=== PATIENT | female | born 1970 | race Caucasian/White ===

== ENCOUNTER → 2023-12-19 13:27 | Outpatient (BNVA) | payer MEDICARE, MEDICAID, SELFPAY | PROVIDERS: Family Provider Pediatrics; PCP Nurse Practitioner; Visit Provider Nurse Practitioner | DX: M79.644 Pain in right finger(s) (principal) | CPT/HCPCS: 73130 ==

== ENCOUNTER 2024-01-21 18:02 | Emergency (ER) | payer MEDICARE, MEDICAID, SELFPAY ==
[2024-01-21 18:10] VITALS: BP 129/66; PULSE 76; RESP 16; O2SAT 99
--- NOTE | 2024-01-21 18:13 | USR_ITS ---
PROCEDURE INFORMATION: Exam: US Duplex Left Lower Extremity Veins, Limited Exam date and time: 01/21/2024 7:03 PM Age: 53 years old Clinical indication: Pain; Leg, lower; Left; Additional info: Leg pain TECHNIQUE: Imaging protocol: Real-time duplex ultrasound of the left extremity with 2-D encarnacion scale, color Doppler flow and spectral waveform analysis including responses to compression and other maneuvers (when performed) with image documentation. Limited exam focused on the left lower extremity veins. COMPARISON: No relevant prior studies available. FINDINGS: Left deep veins: Unremarkable. The common femoral, femoral, proximal profunda femoral, popliteal, posterior tibial and peroneal veins are patent without thrombus. Normal compressibility, augmentation response and Doppler waveforms. Superficial veins: Greater saphenous vein at the saphenofemoral junction is patent without thrombus. Soft tissues: Unremarkable. US/CV venous duplex [facility] [id number] IMPRESSION: No sonographic evidence of deep vein thrombosis.
--- NOTE | 2024-01-21 18:14 | W.ED.EXTPRO ---
HPI - Extremity Problem General: Chief complaint: Extremity Problem,Nontraumatic Stated complaint: Dr sent over for blood clot Time Seen by Provider: 01/21/24 18:09 Source: patient Mode of arrival: ambulatory Limitations: no limitations History of Present Illness: 53-year-old female states been of some left leg pain and swelling for the last 4 to 5 days states she does have history of varicose veins but is worried she has a DVT states she had 1 in the past she is on any blood thinners denies any injuries denies any severe pain. Associated symptoms: Deny chest pain, fever(s) or rash Review of Systems Const: Denies: fever(s) or chills ENMT: Denies: throat pain or dental pain Card: Denies: chest pain Resp: Denies: dyspnea GI: Denies: abdominal pain, nausea, vomiting or diarrhea Musc: Reports: extremity pain and extremity swelling; Denies: neck pain or back pain Skin/Breast: Denies: rash Neuro: Denies: headache(s) PFSH ED PFSH: Social History Smoking and tobacco/nicotine status: current every day tobacco/nicotine user Physical Exam Const: COMMON NORMALS: no acute distress, patient oriented x3 and healthy appearing HENMT: COMMON NORMALS: normocephalic and atraumatic HEAD & SCALP: normocephalic and atraumatic Eye: COMMON NORMALS: conjunctivae normal CONJUNCTIVA: Yes conjunctivae normal Neck/C-Spine: COMMON NORMALS: full ROM and supple Chest: COMMONS NORMALS: normal inspection of the chest Resp: COMMON NORMALS: normal respiratory effort Cardio: COMMON NORMALS: regular rate RATE: regular rate Extremity: NARRATIVE EXTREMITY EXAM: Slight swelling to left calf distal pulses intact does have varicose veins slight erythema is warm to touch Neuro: COMMON NORMALS: patient oriented x3, moves all extremities and no focal motor deficits Psych: COMMON NORMALS: mental status grossly normal, Normal thought process present and cooperative THOUGHT PROCESS: Normal thought process present Skin: COMMON NORMALS: no rashes or lesions noted and no wounds GENERAL SKIN EXAM: no rashes or lesions noted Course Vital Signs: Vital signs: Vital Signs Pulse Rate 76 01/21/24 18:10 Respiratory Rate 16 01/21/24 18:10 Blood Pressure 129/66 01/21/24 18:10 Pulse Oximetry 99 01/21/24 18:10 Oxygen Delivery Me thod Room Air 01/21/24 18:10 MDM - Extremity (Nontraumatic) Medical Decision Making Patient presents for slight erythema to the left leg ultrasounds and no DVT likely very mild cellulitis will start on antibiotics she stable for discharge follow-up with PCP return if worsening. Medical Records I reviewed the patient's medical records. Lab Data Radiology Impressions Venous Duplex 01/21/24 18:13 IMPRESSION: No sonographic evidence of deep vein thrombosis. All radiology interpretation(s) finalized by discharge Discharge Plan Discharge Patient Disposition: Home Clinical Impression: Cellulitis Qualifiers: Site of cellulitis: extremity Site of cellulitis of extremity: lower extremity Laterality: left Qualified Code(s): L03.116 - Cellulitis of left lower limb Condition: Stable Prescriptions: New cephalexin 500 mg capsule 500 mg PO TID 7 Days Qty: 21 0RF No Action tizanidine 4 mg capsule 4 mg PO Q8H PRN albuterol sulfate [Ventolin HFA] 90 mcg/actuation HFA aerosol inhaler 2 puff inhalation 6XD multivitamin Tablet 1 tab PO DAILY polyethylene glycol 3350 [Miralax] 17 gram/dose powder 17 g PO DAILY Qty: 510 4RF morphine 15 mg tablet extended release 15 mg PO Q12H calcium carbonate 500 mg calcium (1,250 mg) tablet 500 mg PO DAILY loratadine [Allergy Relief (loratadine)] 10 mg tablet 10 mg PO DAILY morphine 15 mg tablet 15 mg PO Q4H PRN Rx Instructions: 1/2 to 1 tab Q4H buspirone 5 mg tablet 5 mg PO Q8H gabapentin 600 mg tablet 600 mg PO Q6H PRN albuterol sulfate 1.25 mg/3 mL solution for nebulization 1.25 mg inhalation QID PRN naproxen 500 mg tablet 500 mg PO BID Qty: 60 0RF montelukast [Singulair] 10 mg tablet 10 mg PO DAILY Qty: 30 6RF amlodipine 5 mg tablet 10 mg PO DAILY Qty: 180 1RF bupropion HCl 300 mg tablet extended release 24 hr 300 mg PO QAM Qty: 90 2RF sertraline 50 mg tablet 75 mg PO DAILY Qty: 90 1RF Discharge Orders: Discharge ED (Routine); Ordered 01/21/24 Ordered By: Swapnil Gifford Referrals: Makeda Adamson MD [Family Provider] - Nhi Gilliam FNP [Primary Care Provider] - Discharge Diet: Advance as tolerated Discharge Activity: Resume usual activity Patient Instructions: Cellulitis (ED) Coding Level of Care Code ED Tar Processing Technician for Scot Damon
[2024-01-21] MEDS: cephALEXin 500 mg Capsule PO (20:11)
[2024-01-21 20:13] VITALS: BP 118/60; PULSE 72; O2SAT 96
== END 2024-01-21 20:18 | disposition home or self-care (01) ==
PROVIDERS: Emergency Provider Emergency Medicine; PCP Nurse Practitioner
DX: L03.116 Cellulitis of left lower limb (principal); F17.210 Nicotine dependence, cigarettes, uncomplicated; Z79.899 Other long term (current) drug therapy
CPT/HCPCS: 93971; 99284

== ENCOUNTER → 2024-01-29 11:13 | Outpatient (BNVA) | payer MEDICARE, MEDICAID, SELFPAY | PROVIDERS: PCP Nurse Practitioner; Visit Provider Physician Assistant | DX: M75.42 Impingement syndrome of left shoulder | CPT/HCPCS: 20610; 73030; 99203; J3301 ==

== ENCOUNTER → 2024-02-17 10:20 | Outpatient (BNVA) | payer MEDICARE, MEDICAID, SELFPAY | PROVIDERS: PCP Nurse Practitioner; Visit Provider Nurse Practitioner | DX: I10 Essential (primary) hypertension (principal) | CPT/HCPCS: 80053; 80061; 84443; 85025 ==

== ENCOUNTER → 2024-02-28 09:56 | Outpatient (BNVA) | payer MEDICARE, MEDICAID, SELFPAY | PROVIDERS: PCP Nurse Practitioner; Visit Provider Physician Assistant | DX: M75.42 Impingement syndrome of left shoulder (principal) | CPT/HCPCS: 73030; 99213 ==

== ENCOUNTER 2024-04-07 10:50 | Outpatient (CLI) | payer MEDICARE, MEDICAID, SELFPAY ==
--- NOTE | 2024-04-07 11:00 | MR_ITS ---
WS: [id number] MRI LEFT SHOULDER HISTORY: left shoulder pain COMPARISON: Radiographs 02/28/2024 TECHNIQUE: Multiplanar sequences of the shoulder joint are submitted. Study is significantly compromised by motion artifact. Patient has involuntary spasms. Moderate AC joint arthritis. Mild subacromial impingement. No os acromion. Normal position of the bic eps tendon. Deformity of the humeral head and humeral neck due to healing fracture. No significant residual edema is present. Moderate narrowing of the glenohumeral joint with loss of cartilage. Focal area of osteo necrosis involving the medial humeral head at the level of the glenoid. There is a small joint effusion. Mild atrophy of the supraspinatus muscle. No tendon tears are identi fied. No labral tears are identified although there is fraying of the surfaces. There is a small flui d collection which is multiloculated along the distal subscapularis tendon. This is probably a small ganglion. May be a paralabral cyst as the superior labrum is closely associated with the cystic mass. MR/MR shoulder LT wo con* [id number] IMPRESSION: 1. Deformity LEFT humeral head and neck from a prior healed fracture. 2. Moderate AC joint arthritis. 3. Mild subacromial impingement. 4. No rotator cuff tendon tear. 5. Advanced degenerative changes involving the glenoid and humeral head with l oss of cartilage. 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 6. Small joint effusion. 7. Multiloculated fluid collection adjacent to the distal subscapularis tendon . Differential includes a small ganglion versus paralabral cyst.
== END 2024-04-07 10:51 | disposition home or self-care (01) ==
LOC: RAD 10:52
PROVIDERS: PCP Nurse Practitioner; Visit Provider Physician Assistant
DX: M75.42 Impingement syndrome of left shoulder (principal); M19.012 Primary osteoarthritis, left shoulder
CPT/HCPCS: 73221

== ENCOUNTER → 2024-05-01 10:45 | Outpatient (BNVA) | payer MEDICARE, MEDICAID, SELFPAY | PROVIDERS: PCP Nurse Practitioner; Visit Provider Student in an Organized Health Care Education/Training Program | DX: M19.012 Primary osteoarthritis, left shoulder (principal); M75.42 Impingement syndrome of left shoulder | CPT/HCPCS: 99214 ==

== ENCOUNTER → 2024-06-05 10:26 | Outpatient (BNVA) | payer MEDICARE, MEDICAID, SELFPAY | PROVIDERS: PCP Nurse Practitioner; Visit Provider Student in an Organized Health Care Education/Training Program | DX: M75.42 Impingement syndrome of left shoulder (principal); M19.012 Primary osteoarthritis, left shoulder; Z71.89 Other specified counseling | CPT/HCPCS: 20610; 77002; J3301 ==

== ENCOUNTER 2024-07-04 16:56 | Emergency (ER) | payer MEDICARE, MEDICAID, SELFPAY ==
[2024-07-04 17:06] VITALS: BP 150/84; PULSE 79; RESP 18; TEMP 36.7; O2SAT 99; BMI 28.0
--- NOTE | 2024-07-04 19:04 | XRR_ITS ---
PROCEDURE INFORMATION: Exam: XR Chest Exam date and time: 07/04/2024 7:14 PM Age: 54 years old Clinical indication: Cough and dyspnea and shortness of breath; Patient HX: SOB; Cough; Congestion TECHNIQUE: Imaging protocol: Radiologic exam of the chest. Views: 1 view. COMPARISON: CR XR shoulder LT min 2V* [id number] 02/28/2024 9:57 AM FINDINGS: Lungs: No focal consolidation. Pleural spaces: No sizable pleural effusion. No pneumothorax. Heart/Mediastinum: Unremarkable cardiomediastinal silhouette. Bones/joints: The spine demonstrates mild degenerative changes at multiple levels. Partially imaged anterior cervical fixation hardware. Chronic deformity of the left proximal humerus. XR/XR chest 1V portable [id number] IMPRESSION: No acute findings.
--- NOTE | 2024-07-04 19:13 | ED_ITS ---
HPI - General Adult 2 General: Chief complaint: General Medical Stated complaint: sore throat, wheezing Time Seen by Provider: 07/04/24 18:47 History of Present Illness: Patient resents to the ER with complaints of sore throat wheezing overall not feeling good. Patient also has a nonhealing wound on her left sosa area that has gotten cellulitic multiple times in the past and she is in the process of going to wound care for. Related Data Home Medications Medication Instructions Recorded Confirmed albuterol sulfate 90 mcg/actuation 2 puff inhalation 6XD 10/17/23 06/05/24 aerosol inhaler (Ventolin HFA) multivitamin 1 tab PO DAILY 10/17/23 06/05/24 morphine 15 mg tablet,extended 15 mg PO Q12H 12/19/23 06/05/24 release albuterol sulfate 1.25 mg/3 mL 1.25 mg inhalation QID PRN 01/21/24 06/05/24 solution for nebulization gabapentin 600 mg tablet 600 mg PO Q6H PRN 01/21/24 06/05/24 loratadine 10 mg tablet (Allergy 10 mg PO DAILY 01/21/24 06/05/24 Relief (loratadine)) morphine 15 mg immediate release 15 mg PO Q4H PRN 01/21/24 06/05/24 tablet tizanidine 4 mg capsule 4 mg PO Q8H PRN 01/21/24 06/05/24 Previous Rx's Medication Instructions Recorded polyethylene glycol 3350 17 17 g PO DAILY #510 grams 10/17/23 gram/dose oral powder (Miralax) bupropion HCl 300 mg 24 hr tablet, 300 mg PO QAM #90 tabs 01/09/24 extended release buspirone 5 mg tablet 5 mg PO Q8H #270 tabs 02/11/24 triamcinolone acetonide 0.1 % 1 applic topical BID #80 grams 03/12/24 topical cream calcium 600 mg (as 1 cap PO BID #180 caps 03/19/24 carbonate)-vitamin D3 12.5 mcg (500 unit) capsule (Calcium with Vit D3) albuterol sulfate 90 mcg/actuation See Rx Instructions .Route 04/14/24 aerosol inhaler .COMPLEX #9 grams sertraline 50 mg tablet See Rx Instructions .Route 06/03/24 .COMPLEX #90 tabs docusate sodium 100 mg capsule See Rx Instructions PO DAILY #60 06/04/24 caps amlodipine 5 mg tablet See Rx Instructions .Route 06/15/24 .COMPLEX #180 tabs mupirocin 2 % topical ointment See Rx Instructions .Route 06/16/24 .COMPLEX #22 grams doxycycline hyclate 100 mg capsule 100 mg PO BID #20 caps 06/18/24 naproxen 500 mg tablet See Rx Instructions .Route 06/29/24 .COMPLEX #60 tabs cefdinir 300 mg capsule 300 mg PO BID 10 days #20 caps 07/04/24 fluconazole 200 mg tablet 200 mg PO DAILY #1 tab 07/04/24 (Diflucan) Allergies Allergy/AdvReac Type Severity Reaction Status Date / Time Latex, Natural Rubber Allergy Intermediate blisters Verified 06/05/24 07:01 Penicillins Allergy Intermediate hives Verified 06/05/24 07:01 Sulfa (Sulfonamide Allergy Intermediate hives Verified 06/05/24 07:01 Antibiotics) Review of Systems 2 General: Reports: 10 or more systems reviewed and unremarkable except in HPI and below PFSH ED 2 PFSH: Social History Smoking and tobacco/nicotine status: current every day tobacco/nicotine user Physical Exam 2 Const: COMMON NORMALS: no acute distress, average body habitus, patient oriented x3, no limitations, healthy appearing, alert and well nourished HENMT: COMMON NORMALS: normocephalic, atraumatic, hearing grossly normal bilaterally, external ears normal, Normal external nose present and moist oral mucous membranes HEAD & SCALP: normocephalic and atraumatic NOSE: Normal external nose present EXTERNAL EAR: Yes external ears normal Eye: COMMON NORMALS: Equal, round and reactive pupils present, EOMs intact bilaterally and conjunctivae normal CONJUNCTIVA: Yes conjunctivae normal P UPIL: Yes Equal, round and reactive pupils present Neck/C-Spine: COMMON NORMALS: full ROM, no lymphadenopathy, supple, no meningeal signs, no JVD and Thyroid normal THYROID: Thyroid normal Chest: COMMONS NORMALS: normal inspection of the chest and normal palpation of entire chest wall Resp: COMMON NORMALS: normal respiratory effort, No retractions and No use of accessory muscles; negative for clear to auscultation bilaterally (Rhonchi and wheezing bilaterally diffuse) AUSCULTATION: not clear to auscultation bilaterally (Rhonchi and wheezing bilaterally diffuse) Cardio: COMMON NORMALS: no JVD, regular rate, regular rhythm, S1 normal heart sound present, S2 normal heart sound present, No gallops present (Cardio), No clicks present (Cardio), No murmurs present (Cardio) and No rub (Cardio) R ATE: regular rate RHYTHM: regular rhythm HEART SOUNDS: S1 normal heart sound present and S2 normal heart sound present GI: COMMON NORMALS: Normal to inspection, nondistended, normoactive bowel sounds present, Soft to palpation, non-tender, No hepatosplenomegaly present and no masses PALPATION: Yes Soft to palpation and Yes No hepatosplenomegaly present Neuro: COMMON NORMALS: patient oriented x3 SENSORIUM/ORIENTATION: Yes alert MENINGEAL SIGNS: Yes no meningeal signs Course 2 Vital Signs: Vital signs: Vital Signs Temperature 98.0 F 07/04/24 17:06 Pulse Rate 79 07/04/24 17:06 Respiratory Rate 18 07/04/24 17:06 Blood Pressure 150/84 07/04/24 17:06 Pulse Oximetry 99 07/04/24 17:06 Oxygen Delivery Me thod Room Air 07/04/24 17:06 [facility] - General Adult Medical Decision Making Lab work was obtained which was unremarkable, chest x-ray did not show any acute findings, these results was discussed with the patient. Patient be discharged home instructed to follow-up with wound care. Medical Records I reviewed the patient's medical records. Lab Data I reviewed the patient's lab results. 07/04/24 19:13 07/04/24 19:13 Radiology Impressions Chest X-Ray 07/04/24 19:04 IMPRESSION: No acute findings. Laboratory Results WBC 8.80 10^3/uL (3.29-11.43) 07/04/24 19:13 RBC 4.69 10^6/uL (3.85-5.65) 07/04/24 19:13 Hgb 13.90 g/dL (11.27-16.99) 07/04/24 19:13 Hct 42.6 % (36-47) 07/04/24 19:13 MCV 90.8 fl (85-98) 07/04/24 19:13 MCH 29.6 pg (27-33) 07/04/24 19:13 MCHC 32.6 g/dL (30-55) 07/04/24 19:13 RDW 14.9 % (12.1-15.1) 07/04/24 19:13 Plt Count 350 10^3/cmm (157-399) 07/04/24 19:13 MPV 9.7 fL (7.4-10.4) 07/04/24 19:13 Neut % (Auto) 63.7 % 07/04/24 19:13 Lymph % (Auto) 27.2 % 07/04/24 19:13 [place] % (Auto) 5.5 % 07/04/24 19:13 Eos % (Auto) 2.6 % 07/04/24 19:13 Baso % (Auto) 0.9 % 07/04/24 19:13 Neut # (Auto) 5.61 10^3/uL (1.8-7.7) 07/04/24 19:13 Lymph # (Auto) 2.4 10^3/uL (0.8-4.8) 07/04/24 19:13 [place] # (Auto) 0.5 10^3/uL (0.2-0.9) 07/04/24 19:13 Eos # (Auto) 0.2 10^3/uL (0.0-0.8) 07/04/24 19:13 Baso # (Auto) 0.1 10^3/uL (0.0-0.1) 07/04/24 19:13 Nucleated RBC % (auto) 0 % 07/04/24 19:13 Nucleated RBCs # 0.0 /100WBC 07/04/24 19:13 Sodium 135 mmol/L (136-145) L 07/04/24 19:13 Potassium 4.1 mmol/L (3.5-5.1) 07/04/24 19:13 Chloride 99 mmol/L (98-107) 07/04/24 19:13 Carbon Dioxide 27 mmol/L (22-29) 07/04/24 19:13 Anion Gap 13.1 (5-19) 07/04/24 19:13 BUN 10 mg/dL (6-20) 07/04/24 19:13 Creatinine 0.7 mg/dL (0.5-0.9) 07/04/24 19:13 GFR Calculation 87.5 mL/min (90-130) L 07/04/24 19:13 Glucose 124 mg/dL (65-115) H 07/04/24 19:13 Calculated Osmolality 280 mOsm/kg (285-295) L 07/04/24 19:13 Calcium 8.2 mg/dL (8.5-10.5) L 07/04/24 19:13 Total Bilirubin 0.2 mg/dL (0.15-1.2) 07/04/24 19:13 AST 27 U/L (0-32) 07/04/24 19:13 ALT 32 U/L (0-33) 07/04/24 19:13 Alkaline Phosphatase 124 U/L (35-105) H 07/04/24 19:13 C-Reactive Protein 3.0 mg/L (0.0-4.9) 07/04/24 19:13 Total Protein 5.7 g/dL (6.6-8.7) L 07/04/24 19:13 Albumin 3.2 g/dL (3.5-5.2) L 07/04/24 19:13 Globulin 2.5 g/dL (1.3-4.6) 07/04/24 19:13 Coronavirus (PCR) Negative (Negative) 07/04/24 19:13 Influenza A (PCR) Negative (Negative) 07/04/24 19:13 Influenza Type B (PCR) Negative (Negative) 07/04/24 19:13 RSV (PCR) Negative (Negative) 07/04/24 19:13 All radiology interpretation(s) finalized by discharge Discharge Plan Discharge Patient Disposition: Home Clinical Impression: Viral syndrome, Chronic wound Condition: Stable Prescriptions: New cefdinir 300 mg capsule 300 mg PO BID 10 Days Qty: 20 0RF fluconazole [Diflucan] 200 mg tablet 200 mg PO DAILY Qty: 1 0RF No Action tizanidine 4 mg capsule 4 mg PO Q8H PRN albuterol sulfate [Ventolin HFA] 90 mcg/actuation HFA aerosol inhaler 2 puff inhalation 6XD multivitamin Tablet 1 tab PO DAILY polyethylene glycol 3350 [Miralax] 17 gram/dose powder 17 g PO DAILY Qty: 510 4RF morphine 15 mg tablet extended release 15 mg PO Q12H triamcinolone acetonide 0.1 % cream 1 applic topical BID Qty: 80 0RF docusate sodium 100 mg capsule See Rx Instructions PO DAILY Qty: 60 0RF Rx Instructions: 1-2 tabs daily as needed for constipation. loratadine [Allergy Relief (loratadine)] 10 mg tablet 10 mg PO DAILY morphine 15 mg tablet 15 mg PO Q4H PRN Rx Instructions: 1/2 to 1 tab Q4H gabapentin 600 mg tablet 600 mg PO Q6H PRN albuterol sulfate 1.25 mg/3 mL solution for nebulization 1.25 mg inhalation QID PRN bupropion HCl 300 mg tablet extended release 24 hr 300 mg PO QAM Qty: 90 2RF buspirone 5 mg tablet 5 mg PO Q8H Qty: 270 2RF calcium carbonate-vitamin D3 [Calcium 600 with Vitamin D3] 600 mg-12.5 mcg (500 unit) capsule 1 cap PO BID Qty: 180 3RF albuterol sulfate 90 mcg/actuation HFA aerosol inhaler See Rx Instructions .ROUTE .COMPLEX Qty: 9 0RF Dose Instruction: INHALE 2 PUFFS BY MOUTH EVERY 6 HOURS NEEDED Rx Instructions: INHALE 2 PUFFS BY MOUTH EVERY 6 HOURS NEEDED sertraline 50 mg tablet See Rx Instructions .ROUTE .COMPLEX Qty: 90 0RF Dose Instruction: TAKE 1 & 1/2 (ONE & ONE-HALF) TABLETS BY MOUTH ONCE DAILY Rx Instructions: TAKE 1 & 1/2 (ONE & ONE-HALF) TABLETS BY MOUTH ONCE DAILY amlodipine 5 mg tablet See Rx Instructions .ROUTE .COMPLEX Qty: 180 0RF Dose Instruction: Take 2 tablets by mouth once daily Rx Instructions: Take 2 tablets by mouth once daily mupirocin 2 % ointment See Rx Instructions .ROUTE .COMPLEX Qty: 22 0RF Dose Instruction: APPLY TOPICALLY TWICE DAILY Rx Instructions: APPLY TOPICALLY TWICE DAILY doxycycline hyclate 100 mg capsule 100 mg PO BID Qty: 20 0RF naproxen 500 mg tablet See Rx Instructions .ROUTE .COMPLEX Qty: 60 0RF Dose Instruction: Take 1 tablet by mouth twice daily Rx Instructions: Take 1 tablet by mouth twice daily Discharge Orders: Discharge ED (Routine); Ordered 07/04/24 Ordered By: Nikolai Flores Referrals: Nhi Gilliam FNP [Primary Care Provider] - 1 week Patient Instructions: Chronic Wound Care (ED), Viral Syndrome - Adult Activity Restrictions/Additional Instructions: You been prescribed Omnicef for your congestion. Your x-ray did not show any pneumonia. Your chronic wound looks okay does not look infected at this time. However they antibiotics we put you on for your lungs will also cover your skin. Please continue to go to wound care as previously set up and otherwise follow- up with your family practitioner in the next 7 days for further evaluation and treatment. Coding Level of Care Code ED Audience Development Manager for Scot Damon
[2024-07-04 19:24] LABS: Basophils # 0.1 10^3/uL (0.0-0.1); Basophils % 0.9 %; Eosinophils # 0.2 10^3/uL (0.0-0.8); Eosinophils % 2.6 %; Hematocrit 42.6 % (36-47); Lymphocytes # 2.4 10^3/uL (0.8-4.8); Lymphocytes % 27.2 %; Mean Corpuscular HGB Conc 32.6 g/dL (30-55); Mean Corpuscular Hemoglobin 29.6 pg (27-33); Mean Corpuscular Volume 90.8 fl (85-98); Mean Platelet Volume 9.7 fL (7.4-10.4); Monocytes # 0.5 10^3/uL (0.2-0.9); Monocytes % 5.5 %; Neutrophils # 5.61 10^3/uL (1.8-7.7); Neutrophils % 63.7 %; Nucleated Red Blood Cells % 0 %; Platelet Count 350 10^3/cmm (157-399); Red Blood Count 4.69 10^6/uL (3.85-5.65); Red Cell Distribution Width 14.9 % (12.1-15.1)
[2024-07-04 19:51] LABS: Alanine Aminotransferase 32 U/L (0-33); Albumin Level 3.2 g/dL (3.5-5.2); Alkaline Phosphatase 124 U/L (35-105); Anion Gap 13.1 (5-19); Aspartate Amino Transferase 27 U/L (0-32); Blood Urea Nitrogen 10 mg/dL (6-20); Calcium 8.2 mg/dL (8.5-10.5); Carbon Dioxide 27 mmol/L (22-29); Chloride 99 mmol/L (98-107); Creatinine Clr Calc Pharmacy 101.8826; Globulin 2.5 g/dL (1.3-4.6); Glomerular Filtration Rate 87.5 mL/min (90-130); Glucose 124 mg/dL (65-115); Osmolality Calculated 280 mOsm/kg (285-295); Potassium 4.1 mmol/L (3.5-5.1); Sodium 135 mmol/L (136-145); Total Bilirubin 0.2 mg/dL (0.15-1.2); Total Protein 5.7 g/dL (6.6-8.7)
[2024-07-04 20:00] LABS: Covid PCR NEGATIVE (Negative); Influenza A NEGATIVE (Negative); Influenza B NEGATIVE (Negative); Respiratory Syncytial Virus Ce NEGATIVE (Negative)
[2024-07-04 21:39] VITALS: BP 153/90; PULSE 73; RESP 16; O2SAT 97
== END 2024-07-04 21:44 | disposition home or self-care (01) ==
PROVIDERS: Emergency Provider Emergency Medicine; PCP Nurse Practitioner
DX: B34.9 Viral infection, unspecified (principal); S81.802A Unspecified open wound, left lower leg, initial encounter; X58.XXXA Exposure to other specified factors, initial encounter; Z72.0 Tobacco use; Z11.52 Encounter for screening for COVID-19
CPT/HCPCS: 0241U; 71045; 80053; 85025; 86140; 99284

== ENCOUNTER → 2024-08-25 11:12 | Outpatient (BNVA) | payer MEDICARE, MEDICAID, SELFPAY | PROVIDERS: PCP Nurse Practitioner; Visit Provider Nurse Practitioner | DX: R68.89 Other general symptoms and signs (principal); L98.9 Disorder of the skin and subcutaneous tissue, unspecified; S49.91XA Unspecified injury of right shoulder and upper arm, initial encounter; X58.XXXA Exposure to other specified factors, initial encounter; J10.1 Influenza due to other identified influenza virus with other respiratory manifestations | CPT/HCPCS: 87400 ==

== ENCOUNTER 2024-08-30 03:20 | Inpatient (IN) | payer MEDICARE, MEDICAID, SELFPAY ==
[2024-08-30] VITALS (26 sets, daily range): BP systolic 105–199; BP diastolic 56–120; PULSE 80–108; RESP 14–21; TEMP 36.2–37.4; O2SAT 92–99; BMI 27.3; BMI 28.1
--- NOTE | 2024-08-30 03:39 | XRR_ITS ---
PROCEDURE INFORMATION: Exam: XR Right Hip Exam date and time: 08/30/2024 3:40 AM Age: 54 years old Clinical indication: Injury or trauma; Blunt trauma (contusions or hematomas); Right; EMS arrival for fall at home. Fell directly onto RT hip. C/O severe pain. TECHNIQUE: Imaging protocol: Radiologic exam of the right hip. Views: 1 view hip with pelvis when performed. COMPARISON: No relevant prior studies available. FINDINGS: Bones/joints: Comminuted displaced fracture of the intertrochanteric right femur and right femoral neck. Soft tissues: Unremarkable. XR/XR hip RT 2-3V wo/w pel* [id number] IMPRESSION: Comminuted displaced fracture of the intertrochanteric right femur and right femoral neck.
--- NOTE | 2024-08-30 04:12 | XRR_ITS ---
PROCEDURE INFORMATION: Exam: XR Chest Exam date and time: 08/30/2024 4:15 AM Age: 54 years old Clinical indication: Injury or trauma; Fall; Blunt trauma (contusions or hematomas); Prior surgery; Surgery date: 6+ months; Surgery type: Cervical fusion; Pre op for RT hip fracture. TECHNIQUE: Imaging protocol: Radiologic exam of the chest. Views: 1 view. COMPARISON: CR XR chest 1V portable [id number] 07/04/2024 7:14 PM FINDINGS: Lungs: Unremarkable. No consolidation. Pleural spaces: Unremarkable. No pleural effusion. No pneumothorax. Heart/Mediastinum: Unremarkable. No cardiomegaly. Bones/joints: Unremarkable. XR/XR chest 1V portable [id number] IMPRESSION: No acute findings.
--- NOTE | 2024-08-30 04:12 | XRR_ITS ---
PROCEDURE INFORMATION: Exam: XR Right Femur Exam date and time: 08/30/2024 4:15 AM Age: 54 years old Clinical indication: Injury or trauma; Blunt trauma; Right; Prior surgery; Surgery date: 6+ months; Surgery type: Femoral fixation. Tka; EMS arrival for fall at home. Fell directly onto RT hip. TECHNIQUE: Imaging protocol: Radiologic exam of the right femur. Views: 2 views. COMPARISON: CR (PELVIS, ) 08/30/2024 3:40 AM FINDINGS: Bones/joints: Comminuted intratrochanteric fracture right femur with angulation about the fracture. Osteopenia. Soft tissues: Unremarkable. XR/XR femur RT min 2V* [id number] IMPRESSION: Intertrochanteric fracture.
[2024-08-30 04:33] LABS: Basophils # 0.1 10^3/uL (0.0-0.1); Basophils % 0.4 %; Eosinophils # 0.1 10^3/uL (0.0-0.8); Eosinophils % 0.7 %; Hematocrit 39.4 % (36-47); Lymphocytes # 1.5 10^3/uL (0.8-4.8); Lymphocytes % 8.4 %; Mean Corpuscular HGB Conc 32.7 g/dL (30-55); Mean Corpuscular Hemoglobin 30.2 pg (27-33); Mean Corpuscular Volume 92.3 fl (85-98); Mean Platelet Volume 10.4 fL (7.4-10.4); Monocytes # 1.2 10^3/uL (0.2-0.9); Monocytes % 6.6 %; Neutrophils # 14.95 10^3/uL (1.8-7.7); Neutrophils % 82.8 %; Nucleated Red Blood Cells % 0 %; Platelet Count 372 10^3/cmm (157-399); Red Blood Count 4.27 10^6/uL (3.85-5.65); Red Cell Distribution Width 15.1 % (12.1-15.1); White Blood Count 18.05 10^3/uL (3.29-11.43)
[2024-08-30 04:53] LABS: Anion Gap 14.9 (5-19); Blood Urea Nitrogen 14 mg/dL (6-20); Calcium 8.2 mg/dL (8.5-10.5); Carbon Dioxide 25 mmol/L (22-29); Chloride 97 mmol/L (98-107); Creatinine Clr Calc Pharmacy 100.8179; Glomerular Filtration Rate 87.5 mL/min (90-130); Glucose 114 mg/dL (65-115); Osmolality Calculated 275 mOsm/kg (285-295); Potassium 4.9 mmol/L (3.5-5.1); Sodium 132 mmol/L (136-145)
--- NOTE | 2024-08-30 04:53 | ECG_ITS ---
[facility] Test Date: 2024-08-30 Pat Name: [facility] Department: Room: Gender: Female Joint Cutter Machine: : 1970 Requested By: Tristian Vigil Order Number: [id number] Jonathan MD: Chloe Rosas M.D. Measurements Intervals Calvin Rate: 103 P: 40 MO: 152 QRS: 6 QRSD: 90 T: 43 QT: 314 QTc: 412 Interpretive Statements SINUS TACHYCARDIA LOW QRS VOLTAGE IN PRECORDIAL LEADS [QRS DEFLECTION < 1.0 mV IN CHEST LEADS] SEPTAL MYOCARDIAL INFARCTION , OF INDETERMINATE AGE [40+ ms Q WAVE IN V1/V2] No previous ECG available for comparison Electronically Signed On 08-30-2024 18:48:18 REPAIR SERVICER by Chloe Rosas M.D. [email or web address]
--- NOTE | 2024-08-30 05:02 | P.HP_ITS ---
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 Patient reports hip pain began after falling at home prior to arrival. She reports she tripped while she was going to the restroom. She landed on her right hip and instantly had pain. She states that she thought she shattered her hip after the fall. She describes her pain 10 out of 10. Any movement worsens pain. Denies alleviating factors. She received multiple doses of ketamine prior to arrival by EMS. In the emergency department, she was found to have comminuted displaced fracture of the intertrochanteric right femur and right femoral neck. Orthopedic surgery consulted. Her son is bedside and supportive. Discussed plan of care. Review of Systems 2 Narrative: A complete review of systems was obtained and is negative except as stated in HPI. Medications/Allergies Home Medications ?Medication ?Instructions ?Recorded ?Confirmed ?Last Taken ?Type albuterol sulfate 90 mcg/actuation 2 puff inhalation 6 XD 10/17/23 08/25/24 Unknown History aerosol inhaler (Ventolin HFA) multivitamin 1 tab PO DAILY 10/17/2308/15 Unknown History polyethylene glycol 3350 17 17 g PO DAILY #510 grams 0 10/17/23 08/25/24 Unknown Rx gram/dose oral powder (Miralax) morphine 15 mg tablet,extended 15 mg PO Q12H 12/19/23 08/25/24 Unknown History release bupropion HCl 300 mg 24 hr tablet, 300 mg PO QAM #90 t abs 01/09/24 08/25/24 Unknown Rx extended release albuterol sulfate 1.25 mg/3 mL 1.25 mg inhalation QID PRN 01/21/24 08/25/24 Unknown History solution for nebulization gabapentin 600 mg tablet 600 mg PO Q6H PRN 01/21/24 0 08/25/24 Unknown History loratadine 10 mg tablet (Allergy 10 mg PO DAILY 08/25/24 Unknown History Relief (loratadine)) morphine 15 mg immediate release 15 mg PO Q4H PRN 04/0708/25/24 Unknown History tablet tizanidine 4 mg capsule 4 mg PO Q8H PRN 01/21/2406/08 Unknown History buspirone 5 mg tablet 5 mg PO Q8H #270 tabs 08/25/24 Unknown Rx triamcinolone acetonide 0.1 % 1 applic topical BID #80 grams 03/12/24 08/25/24 Unknown Rx topical cream calcium 600 mg (as 1 cap PO BID #180 caps 03/1908/25/24 Unknown Rx carbonate)-vitamin D3 12.5 mcg (500 unit) capsule (Calcium with Vit D3) albuterol sulfate 90 mcg/actuation See Rx Instructions .Route 04/14/24 08/25/24 Unknown Rx aerosol inhaler .COMPLEX #9 grams docusate sodium 100 mg capsule See Rx Instructions PO DAILY #60 06/04/24 08/25/24 Unknown Rx caps amlodipine 5 mg tablet See Rx Instructions .Route 1 08/16/23 08/25/24 Unknown Rx .COMPLEX #180 tabs mupirocin 2 % topical ointment See Rx Instructions .Ro [place] 06/16/24 08/25/24 Unknown Rx .COMPLEX #22 grams montelukast 10 mg tablet 10 mg PO DAILY #90 tabs 09/0808/25/24 Unknown Rx (Singulair) sertraline 50 mg tablet See Rx Instructions .Route 0 08/10/24 08/25/24 Unknown Rx .COMPLEX #90 tabs benzonatate 100 mg capsule 100 mg PO TID PRN cough #30 caps 08/25/24 08/25/24 Unknown Rx buprenorphine 7.5 mcg/hour weekly 1 patch transdermal Q7D 08/25/24 08/25/24 Unknown History transdermal patch oseltamivir 75 mg capsule (Tamiflu) 75 mg PO BID 5 day s #10 caps 08/25/24 08/25/24 Unknown Rx naproxen 500 mg tablet See Rx Instructions .Route 0 08/28/24 Unknown Rx .COMPLEX #60 tabs Allergies Allergy/AdvReac Type Severity Reaction Status Date / Time Latex, Natural Rubber Allergy Intermediate blisters Verified 08/25/24 10:44 Penicillins Allergy Intermediate hives Verified 08/25/24 10:44 Sulfa (Sulfonamide Allergy Intermediate hives Verified 08/25/24 10:44 Antibiotics) PFSH Acute 2 PFSH: Medical History Myofascial pain syndrome Sacroiliitis Lumbar spinal stenosis Asthma Hyperlipidemia Deep vein thrombosis Osteoarthritis Compression fracture Depression Left leg cellulitis Venous stasis ulcer Acute bronchitis Chronic pain Blind AMD (age-related macular degeneration), wet Surgical History History of cholecystectomy History of bariatric surgery History of tonsillectomy History of knee surgery History of hysterectomy History of tubal ligation Social History Smoking and tobacco/nicotine status: current every day tobacco/nicotine user Vitals/I&O/Wt Last Vital Signs Temp 98.2 F 08/30/24 03:25 Pulse 106 H 08/30/24 04:08 Resp 14 08/30/24 04:08 BP 154/99 08/30/24 04:08 Pulse Ox 95 08/30/24 04:08 O2 Del Method Nasal Cannula 08/30/24 04:08 O2 Flow Rate 3 08/30/24 04:08 Weight last 48 hrs Weight 79.379 kg Weight 79.379 kg Physical Exam 2 Narrative: General: Patient is awake in moderate distress from pain. Head: Normocephalic. Blind. Neck: No JVD. Cardiovascular: Mildly tachycardic with regular rhythm. No gallops. No murmurs. Lungs: Slightly tachypneic. Breath sounds are slightly diminished in bases. No use of accessory muscles, no crackles or wheezes. On 3 L nasal cannula support. Skin: No jaundice. No rashes. Abdomen: Normal bowel sounds, abdomen soft and nontender. Extremities: No cyanosis or clubbing. Right lower extremity shortened and externally rotated. Exam limited due to pain. Musculoskeletal: No erythematous joints. Normal muscle development for age. Neurological: Moves all 4 extremities. No myoclonus. Data 08/30/24 03:36 08/30/24 03:36 A&P Assessment and plan (1) Hip fracture: Right hip fracture secondary to mechanical fall Strict bedrest Carrillo catheter after pain control improves Multimodal pain control N.p.o. status Orthopedic surgery consulted (2) Chronic pain: Patient on buprenorphine/morphine prior to arrival Buprenorphine patch removed in ED Chronic opioid use will make her acute pain more difficult to control (3) Leukocytosis: Suspect stress-induced Monitor for evidence of infection (4) Constipation: Start bowel regiment (5) Anxiety: Continue home anxiolytics after home list is updated (6) Asthma: Not in exacerbation Breathing treatments as needed Plan DVT prophylaxis: SCD PDMP PDMP Reviewed: Not Reviewed Attestations 2 Medical Necessity Statement*: Patient presents with mechanical fall, found to have right hip fracture with expected hospitalization across 2 midnights for IV analgesics, orthopedic surgery evaluation, surgery, serial labs, and supportive care. Coding Level of Care Code Acute Code for [facility] Diagnoses Hip fracture S72.009A Chronic pain G89.29 Leukocytosis D72.829 Constipation K59.00 Anxiety F41.9 Asthma J45.909
[2024-08-30] MEDS: HYDROMORPHONE HCL 0.5 MG/0.5 ML INJ IVP (05:07)
--- NOTE | 2024-08-30 05:07 | ED_ITS ---
HPI - Fall 2 General: Chief Complaint: Fall Stated Complaint: FALL Time Seen by Provider: 08/30/24 03:29 History of Present Illness: This patient is a 54-year-old white female brought in by EMS. Patient tripped and fell at home and injured the right hip. Nursing staff obtain the history from the EMS crew. EMS did give her ketamine so I was unable to get a history from the patient. Related Data Home Medications ?Medication ?Instructions ?Recorded ?Confirmed albuterol sulfate 90 mcg/actuation 2 puff inhalation 6 XD 10/17/23 08/25/24 aerosol inhaler (Ventolin HFA) multivitamin 1 tab PO DAILY 10/17/2308/15 morphine 15 mg tablet,extended 15 mg PO Q12H 12/19/23 08/25/24 release albuterol sulfate 1.25 mg/3 mL 1.25 mg inhalation QID PRN 01/21/24 08/25/24 solution for nebulization gabapentin 600 mg tablet 600 mg PO Q6H PRN 01/21/24 0 08/25/24 loratadine 10 mg tablet (Allergy 10 mg PO DAILY 08/25/24 Relief (loratadine)) morphine 15 mg immediate release 15 mg PO Q4H PRN 07/04/0708/25/24 tablet tizanidine 4 mg capsule 4 mg PO Q8H PRN 01/21/2406/08 buprenorphine 7.5 mcg/hour weekly 1 patch transdermal Q7D 08/25/24 08/25/24 transdermal patch Previous Rx's ?Medication ?Instructions ?Recorded polyethylene glycol 3350 17 17 g PO DAILY #510 grams 0 10/17/23 gram/dose oral powder (Miralax) bupropion HCl 300 mg 24 hr tablet, 300 mg PO QAM #90 t abs 01/09/24 extended release buspirone 5 mg tablet 5 mg PO Q8H #270 tabs triamcinolone acetonide 0.1 % 1 applic topical BID #80 grams 03/12/24 topical cream calcium 600 mg (as 1 cap PO BID #180 caps 03/19 carbonate)-vitamin D3 12.5 mcg (500 unit) capsule (Calcium with Vit D3) albuterol sulfate 90 mcg/actuation See Rx Instructions .Route 04/14/24 aerosol inhaler .COMPLEX #9 grams docusate sodium 100 mg capsule See Rx Instructions PO DAILY #60 06/04/24 caps amlodipine 5 mg tablet See Rx Instructions .Route 1 08/16/23 .COMPLEX #180 tabs mupirocin 2 % topical ointment See Rx Instructions .Ro [place] 06/16/24 .COMPLEX #22 grams montelukast 10 mg tablet 10 mg PO DAILY #90 tabs 09/08 (Singulair) sertraline 50 mg tablet See Rx Instructions .Route 0 08/10/24 .COMPLEX #90 tabs benzonatate 100 mg capsule 100 mg PO TID PRN cough #30 caps 08/25/24 oseltamivir 75 mg capsule (Tamiflu) 75 mg PO BID 5 day s #10 caps 08/25/24 naproxen 500 mg tablet See Rx Instructions .Route 0 08/28/24 .COMPLEX #60 tabs Allergies Allergy/AdvReac Type Severity Reaction Status Date / Time Latex, Natural Rubber Allergy Intermediate blisters Verified 08/25/24 10:44 Penicillins Allergy Intermediate hives Verified 08/25/24 10:44 Sulfa (Sulfonamide Allergy Intermediate hives Verified 08/25/24 10:44 Antibiotics) Review of Systems 2 General: Reports: 10 or more systems reviewed and unremarkable except in HPI and below Musc: Reports: extremity pain (Right hip/pelvis) PFSH ED 2 PFSH: Social History Smoking and tobacco/nicotine status: current every day tobacco/nicotine user Physical Exam 2 Const: COMMON NORMALS: patient oriented x3 and no limitations EXAM LIMITATIONS: altered mental status (Secondary to ketamine) GENERAL APPEARANCE: in distress HENMT: COMMON NORMALS: normocephalic, atraumatic, Normal nasal mucous membranes and turbinates present, moist oral mucous membranes and oropharynx normal HEAD & SCALP: normal to inspection, normocephalic and atraumatic F SAURABH & SINUS: normal facial exam NOSE: Normal nasal mucous membranes and turbinates present Neck/C-Spine: COMMON NORMALS: supple and no JVD Chest: COMMONS NORMALS: normal inspection of the chest Resp: COMMON NORMALS: normal respiratory effort and clear to auscultation bilaterally AUSCULTATION: clear to auscultation bilaterally Cardio: COMMON NORMALS: no JVD, regular rate, regular rhythm, No gallops present (Cardio), No murmurs present (Cardio) and No rub (Cardio) RATE: r egular rate RHYTHM: regular rhythm GI: COMMON NORMALS: Normal to inspection, nondistended, normoactive bowel sounds present, Soft to palpation and non-tender AUSCULTATION: Yes normoactive bowel sounds PALPATION: Yes Soft to palpation Extremity: NARRATIVE EXTREMITY EXAM: Painful range of motion of the right hip. Neuro: COMMON NORMALS: patient oriented x3 and CN's II-XII intact bilaterally Skin: COMMON NORMALS: no rashes or lesions noted, turgor normal and no jaundice GENERAL SKIN EXAM: no rashes or lesions noted and turgor normal Course 2 Vital Signs: Vital signs: Vital Signs Temperature 98.2 F 08/30/24 03:25 Pulse Rate 106 H 08/30/24 04:08 Respiratory Rate 14 08/30/24 04:08 Blood Pressure 154/99 08/30/24 04:08 Pulse Oximetry 95 08/30/24 04:08 Oxygen Delivery Me thod Nasal Cannula 08/30/24 04:08 Oxygen Flow Rate 3 08/30/24 04:08 MDM - Fall Medical Decision Making X-rays of the right hip and right femur reveal an intertrochanteric fracture. Case was discussed with Dr. Garcia, orthopedist. She would like the patient admitted to the hospitalist. I discussed the case with Dr. Hernández. He did accept the patient for admission. Patient was given 0.5 mg of Dilaudid IV for her pain. Patient will be transferred to the floor shortly. She is stable. Lab Data 08/30/24 03:36 08/30/24 03:36 Radiology Impressions Hip/Pelvis X-Ray 08/30/24 03:39 IMPRESSION: Comminuted displaced fracture of the intertrochanteric right femur and right femoral neck. Chest X-Ray 08/30/24 04:12 IMPRESSION: No acute findings. Femur X-Ray 08/30/24 04:12 IMPRESSION: Intertrochanteric fracture. Laboratory Results WBC 18.05 10^3/uL (3.29-11.43) H 08/30/24 03:36 RBC 4.27 10^6/uL (3.85-5.65) 08/30/24 03:36 Hgb 12.90 g/dL (11.27-16.99) 08/30/24 03:36 Hct 39.4 % (36-47) 08/30/24 03:36 MCV 92.3 fl (85-98) 08/30/24 03:36 MCH 30.2 pg (27-33) 08/30/24 03:36 MCHC 32.7 g/dL (30-55) 08/30/24 03:36 RDW 15.1 % (12.1-15.1) 08/30/24 03:36 Plt Count 372 10^3/cmm (157-399) 08/30/24 03:36 MPV 10.4 fL (7.4-10.4) 08/30/24 03:36 Neut % (Auto) 82.8 % 08/30/24 03:36 Lymph % (Auto) 8.4 % 08/30/24 03:36 [place] % (Auto) 6.6 % 08/30/24 03:36 Eos % (Auto) 0.7 % 08/30/24 03:36 Baso % (Auto) 0.4 % 08/30/24 03:36 Neut # (Auto) 14.95 10^3/uL (1.8-7.7) H 08/30/24 03:36 Lymph # (Auto) 1.5 10^3/uL (0.8-4.8) 08/30/24 03:36 [place] # (Auto) 1.2 10^3/uL (0.2-0.9) H 08/30/24 03:36 Eos # (Auto) 0.1 10^3/uL (0.0-0.8) 08/30/24 03:36 Baso # (Auto) 0.1 10^3/uL (0.0-0.1) 08/30/24 03:36 Nucleated RBC % (auto) 0 % 08/30/24 03:36 Nucleated RBCs # 0.0 /100WBC 08/30/24 03:36 Sodium 132 mmol/L (136-145) L 08/30/24 03:36 Potassium 4.9 mmol/L (3.5-5.1) 08/30/24 03:36 Chloride 97 mmol/L (98-107) L 08/30/24 03:36 Carbon Dioxide 25 mmol/L (22-29) 08/30/24 03:36 Anion Gap 14.9 (5-19) 08/30/24 03:36 BUN 14 mg/dL (6-20) 08/30/24 03:36 Creatinine 0.7 mg/dL (0.5-0.9) 08/30/24 03:36 GFR Calculation 87.5 mL/min (90-130) L 08/30/24 03:36 Glucose 114 mg/dL (65-115) 08/30/24 03:36 Calculated Osmolality 275 mOsm/kg (285-295) L 08/30/24 03:36 Calcium 8.2 mg/dL (8.5-10.5) L 08/30/24 03:36 All radiology interpretation(s) finalized by discharge Discharge Plan Discharge Condition: Stable Prescriptions: No Action tizanidine 4 mg capsule 4 mg PO Q8H PRN albuterol sulfate [Ventolin HFA] 90 mcg/actuation HFA aerosol inhaler 2 puff inhalation 6XD multivitamin Tablet 1 tab PO DAILY polyethylene glycol 3350 [Miralax] 17 gram/dose powder 17 g PO DAILY Qty: 510 4RF morphine 15 mg tablet extended release 15 mg PO Q12H triamcinolone acetonide 0.1 % cream 1 applic topical BID Qty: 80 0RF docusate sodium 100 mg capsule See Rx Instructions PO DAILY Qty: 60 0RF Rx Instructions: 1-2 tabs daily as needed for constipation. loratadine [Allergy Relief (loratadine)] 10 mg tablet 10 mg PO DAILY morphine 15 mg tablet 15 mg PO Q4H PRN Rx Instructions: 1/2 to 1 tab Q4H gabapentin 600 mg tablet 600 mg PO Q6H PRN albuterol sulfate 1.25 mg/3 mL solution for nebulization 1.25 mg inhalation QID PRN buprenorphine 7.5 mcg/hour patch weekly 1 patch transdermal Q7D oseltamivir [Tamiflu] 75 mg capsule 75 mg PO BID 5 Days Qty: 10 0RF benzonatate 100 mg capsule 100 mg PO TID PRN (Reason: cough) Qty: 30 0RF bupropion HCl 300 mg tablet extended release 24 hr 300 mg PO QAM Qty: 90 2RF buspirone 5 mg tablet 5 mg PO Q8H Qty: 270 2RF calcium carbonate-vitamin D3 [Calcium 600 with Vitamin D3] 600 mg-12.5 mcg (500 unit) capsule 1 cap PO BID Qty: 180 3RF albuterol sulfate 90 mcg/actuation HFA aerosol inhaler See Rx Instructions .ROUTE .COMPLEX Qty: 9 0RF Dose Instruction: INHALE 2 PUFFS BY MOUTH EVERY 6 HOURS NEEDED Rx Instructions: INHALE 2 PUFFS BY MOUTH EVERY 6 HOURS NEEDED amlodipine 5 mg tablet See Rx Instructions .ROUTE .COMPLEX Qty: 180 0RF Dose Instruction: Take 2 tablets by mouth once daily Rx Instructions: Take 2 tablets by mouth once daily mupirocin 2 % ointment See Rx Instructions .ROUTE .COMPLEX Qty: 22 0RF Dose Instruction: APPLY TOPICALLY TWICE DAILY Rx Instructions: APPLY TOPICALLY TWICE DAILY montelukast [Singulair] 10 mg tablet 10 mg PO DAILY Qty: 90 2RF sertraline 50 mg tablet See Rx Instructions .ROUTE .COMPLEX Qty: 90 0RF Dose Instruction: TAKE 1 & 1/2 (ONE & ONE-HALF) TABLETS BY MOUTH ONCE DAILY Rx Instructions: TAKE 1 & 1/2 (ONE & ONE-HALF) TABLETS BY MOUTH ONCE DAILY naproxen 500 mg tablet See Rx Instructions .ROUTE .COMPLEX Qty: 60 0RF Dose Instruction: Take 1 tablet by mouth twice daily Rx Instructions: Take 1 tablet by mouth twice daily Referrals: Nhi Gilliam FNP [Primary Care Provider] - Print Language: [place] Coding Level of Care Code ED General Merchandise Salesperson for [employer]
[2024-08-30] MEDS: ketorolac 30 mg/mL INJ 15 MG IVP ×4 (05:40→23:57)
[2024-08-30] MEDS: HYDROMORPHONE HCL 0.5 MG/0.5 ML INJ 1 MG IVP ×2 (05:41→08:34)
[2024-08-30] MEDS: orphenadrine 30 mg/mL Inj 2 mL 60 MG IVP (06:26)
[2024-08-30 06:57] LABS: Procalcitonin 0.06 ng/mL (0-0.5)
[2024-08-30] MEDS: dextrose 5%-sod chloride 0.45% 1,000 ML 75 ML IV (07:08)
[2024-08-30] MEDS: BuSPIRONE 10 mg Tablet 5 MG PO ×2 (07:09→21:21)
[2024-08-30] MEDS: buPROPion XL (24 HR) 300 mg Tablet PO (07:09)
[2024-08-30] MEDS: amlodipine 5 mg Tablet 10 MG PO (08:29)
[2024-08-30] MEDS: montelukast sodium 10 mg Tablet PO (08:29)
[2024-08-30] MEDS: sertraline 50 mg Tablet 75 MG PO (08:29)
[2024-08-30] MEDS: sennosides 8.6 mg Tablet 17.2 MG PO ×2 (08:30→16:59)
[2024-08-30] MEDS: loratadine 10 mg Tablet PO (08:30)
--- NOTE | 2024-08-30 08:32 | PC.PHAR ---
Ems states Fentanly patch on pt-which should be Buprenorphine 7.5mcg/Hour patch applied once weekly.
--- NOTE | 2024-08-30 09:43 | P.ANESASSM_ITS ---
Pre-Anesthetic Assessment Height/Weight: Height 5 ft 7 in Weight 180 lb Temp Pulse Resp BP Pulse Ox O2 Del Method O2 Flow Rate 98.2 F 87 16 131/76 94 Nasal Cannula 3 08/30/24 08:00 08/30/24 08:12 08/30/24 08:12 08/30/24 08:00 08/30/24 08:12 08/30/24 08:12 08/30/24 08:12 Preop Diagnosis: Hip fracture Operation Date: 08/30/24 11:50 Proposed Procedures p ORIF Femur(Right) - Olga Brambila MD Was Beta Raz taken within 24 hours: N/A Was Clonidine taken within 24 hours: N/A Social No alcohol and No tobacco Exam alert, oriented x 3, clear to auscultation bilaterally and regular rate & rhythm Airway Submandibular: within normal limits Cervical ROM: within normal limits Mallampati: Class III Dentition: false Anesthetic Plan ASA status: 3 Anesthesia: General Other: Patient presents to the ED with hip fracture after a fall earlier today. No prior issues with anesthesia Chronic pain patient, on chronic morphine and burprenorphine HTN on amlodipine Prior DVTs Bariatric surgery Patient is influenza positive EKG showing sinus tachycardia with possible old septal MT noted labs reviewed and acceptable for surgery today Plan for GETA Medications/Allergies Home Medications ?Medication ?Instructions ?Recorded ?Confirmed ?Last Taken ?Type multivitamin 1 tab PO DAILY 10/17/2308/15 Unknown History polyethylene glycol 3350 17 17 g PO DAILY #510 grams 0 10/17/23 08/30/24 Unknown Rx gram/dose oral powder (Miralax) bupropion HCl 300 mg 24 hr tablet, 300 mg PO QAM #90 t abs 01/09/24 08/30/24 Unknown Rx extended release gabapentin 600 mg tablet 600 mg PO Q6H PRN nerve pain 01/21/24 08/30/24 Unknown History loratadine 10 mg tablet (Allergy 10 mg PO DAILY 08/30/24 Unknown History Relief (loratadine)) morphine 15 mg immediate release 7.5 - 15 mg PO Q4H DC N Pain 01/21/24 08/30/24 Unknown History tablet tizanidine 4 mg capsule 4 mg PO Q8H PRN muscle spasm s 01/21/24 08/30/24 Unknown History buspirone 5 mg tablet 5 mg PO Q8H #270 tabs 08/30/24 Unknown Rx triamcinolone acetonide 0.1 % 1 applic topical BID #80 grams 03/12/24 08/30/24 Unknown Rx topical cream calcium 600 mg (as 1 cap PO BID #180 caps 03/1908/30/24 Unknown Rx carbonate)-vitamin D3 12.5 mcg (500 unit) capsule (Calcium with Vit D3) albuterol sulfate 90 mcg/actuation See Rx Instructions .Route 04/14/24 08/30/24 Unknown Rx aerosol inhaler .COMPLEX #9 grams docusate sodium 100 mg capsule See Rx Instructions PO DAILY #60 06/04/24 08/30/24 Unknown Rx caps amlodipine 5 mg tablet See Rx Instructions .Route 1 08/16/23 08/30/24 Unknown Rx .COMPLEX #180 tabs mupirocin 2 % topical ointment See Rx Instructions .Ro [place] 06/16/24 08/30/24 Unknown Rx .COMPLEX #22 grams montelukast 10 mg tablet 10 mg PO DAILY #90 tabs 01/0 09/0808/30/24 Unknown Rx (Singulair) sertraline 50 mg tablet See Rx Instructions .Route 0 08/10/24 08/30/24 Unknown Rx .COMPLEX #90 tabs benzonatate 100 mg capsule 100 mg PO TID PRN cough #30 caps 08/25/24 08/30/24 Unknown Rx buprenorphine 7.5 mcg/hour weekly 1 patch transdermal Q7D 08/25/24 08/30/24 Unknown History transdermal patch oseltamivir 75 mg capsule (Tamiflu) 75 mg PO BID 5 day s #10 caps 08/25/24 08/30/24 Unknown Rx naproxen 500 mg tablet See Rx Instructions .Route 0 08/28/24 08/30/24 Unknown Rx .COMPLEX #60 tabs naloxone 4 mg/actuation nasal spray See Rx Instruction s .Route .COMPLEX 08/30/24 08/30/24 Unknown History Allergies Allergy/AdvReac Type Severity Reaction Status Date / Time Latex, Natural Rubber Allergy Intermediate blisters Verified 08/25/24 10:44 Penicillins Allergy Intermediate hives Verified 08/25/24 10:44 Sulfa (Sulfonamide Allergy Intermediate hives Verified 08/25/24 10:44 Antibiotics) Current Medications Generic Name Dose Route Start Last Admin Trade Name Freq PRN Reason Stop Dose Admin Amlodipine Besylate 10 mg 08/30/24 09:00 08/30/24 08:29 Amlodipine 5 Mg Tablet PO 10 mg DAILY AURELIO Administration Bupropion HCl 300 mg 08/30/24 06:08 08/30/24 07:09 Bupropion Xl (24 Hr) 300 Mg Tablet PO 300 mg QAM AURELIO Administration Buspirone HCl 5 mg 08/30/24 06:15 08/30/24 07:09 Buspirone 10 Mg Tablet PO 5 mg Q8H AURELIO Administration Hydromorphone HCl 1 mg 08/30/24 06:11 08/30/24 08:34 Hydromorphone Hcl 0.5 Mg/0.5 Ml Inj IVP 1 mg Q2H PRN Administration severe pain Dextrose/Sodium Chloride 1,000 mls @ 75 mls/hr 08/30/24 06:08 08/30/24 07:08 Dextrose 5%-Sod Chloride 0.45% IV 75 mls/hr .[id number] AURELIO Administration Loratadine 10 mg 08/30/24 09:00 08/30/24 08:30 Loratadine 10 Mg Tablet PO 10 mg DAILY AURELIO Administration Montelukast Sodium 10 mg 08/30/24 09:00 08/30/24 08:29 Montelukast Sodium 10 Mg Tablet PO 10 mg DAILY AURELIO Administration Polyethylene Glycol 34 gm 08/30/24 09:00 08/30/24 08:48 Polyethylene Glycol 3350 Pkt 17 Gm PO Not Given DAILY AURELIO Senna 17.2 mg 08/30/24 09:00 08/30/24 08:30 Sennosides 8.6 Mg Tablet PO 17.2 mg BID AURELIO Administration Sertraline HCl 75 mg 08/30/24 09:00 08/30/24 08:29 Sertraline 50 Mg Tablet PO 75 mg DAILY AURELIO Administration [facility] Anesthesia Medical History Myofascial pain syndrome Sacroiliitis Lumbar spinal stenosis Asthma Hyperlipidemia Deep vein thrombosis Osteoarthritis Compression fracture Depression Left leg cellulitis Venous stasis ulcer Acute bronchitis Chronic pain Blind AMD (age-related macular degeneration), wet Surgical History History of cholecystectomy History of bariatric surgery History of tonsillectomy History of knee surgery History of hysterectomy History of tubal ligation Social History Smoking and tobacco/nicotine status: current every day tobacco/nicotine user Data Anesthesia 08/30/24 03:36 08/30/24 03:36 Short CBC 08/30/24 Range/Units 03:36 WBC 18.05 H (3.29-11.43) 10^3/uL Hgb 12.90 (11.27-16.99) g/dL Hct 39.4 (36-47) % MCV 92.3 (85-98) fl Plt Count 372 (157-399) 10^3/cmm Neut % (Auto) 82.8 % Neut # (Auto) 14.95 H (1.8-7.7) 10^3/uL BMP 08/30/24 03:36 Sodium 132 L Potassium 4.9 Chloride 97 L Carbon Dioxide 25 BUN 14 Creatinine 0.7 Glucose 114 Calcium 8.2 L Cardiac Studies: 2 No Data to Display
[2024-08-30] MEDS: sodium chloride 0.9% 1,000 ML 30 ML IV (11:30)
--- NOTE | 2024-08-30 11:30 | XR_ITS ---
WS: [id number] Exam: XR hip RT 2-3V wo/w pel* [id number] Date/Time of Exam: 08/30/2024 11:30 AM Reason For Exam: RT TFN An intramedullary jey and femoral neck screws stabilize an intertrochanteric fracture of the RIGHT hip in satisfactory alignment for healing. Postoperative changes in the adjacent soft tissues. XR/XR hip RT 2-3V wo/w pel* [id number] IMPRESSION: 1. Satisfactory ORIF of an intertrochanteric fracture of the RIGHT hip.
--- NOTE | 2024-08-30 11:32 | P.CONIM_ITS ---
Providers/Reason For Consult 2 Consulting Physician/Specialty*: Olga Brambila MD Reason for Consult*: Right intertrochanteric hip fracture with subtrochanteric extension Requesting Physician: Dr. Tristian Vigil Attending Physician: Beba Torres MD Primary Care Provider: Nhi Gilliam APN History of Present Illness History of Present Illness Simi Casper is a 54 year old female who was in her usual state of health when she had a fall at home. Patient has a very complex past medical history. Orthopedically, she has had a total knee replacement on the right. A few weeks subsequent to the knee replacement, she had a fracture in her femur during a surgical manipulation. This required a supracondylar plate and screws. This plate obviously is up to the femoral shaft precluding the ability to proceed with long trochanteric nail. The patient has chronic pain and is on buprenorphine and morphine at home. Other medical history is significant and well outlined in the hospitalist history and physical. Patient notes she tripped on the way to the restroom and landed on her right hip. She instantly had pain. She is quite anxious when she is seen preoperatively. 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 Constipation, osteopenia, anxiety, hypertension, depression, history of DVT, bariatric surgery, and multiple other comorbidities. Bariatric surgery included a sleeve and subsequent [id number]. Please see past medical history. Musc: Reports: extremity pain (Right hip/pelvis) and joint warmth Medications/Allergies Home Medications ?Medication ?Instructions ?Recorded ?Confirmed ?Last Taken ?Type multivitamin 1 tab PO DAILY 10/17/2308/15 Unknown History polyethylene glycol 3350 17 17 g PO DAILY #510 grams 0 10/17/23 08/30/24 Unknown Rx gram/dose oral powder (Miralax) bupropion HCl 300 mg 24 hr tablet, 300 mg PO QAM #90 t abs 01/09/24 08/30/24 Unknown Rx extended release gabapentin 600 mg tablet 600 mg PO Q6H PRN nerve pain 01/21/24 08/30/24 Unknown History loratadine 10 mg tablet (Allergy 10 mg PO DAILY 08/30/24 Unknown History Relief (loratadine)) morphine 15 mg immediate release 7.5 - 15 mg PO Q4H NH N Pain 01/21/24 08/30/24 Unknown History tablet tizanidine 4 mg capsule 4 mg PO Q8H PRN muscle spasm s 01/21/24 08/30/24 Unknown History buspirone 5 mg tablet 5 mg PO Q8H #270 tabs 08/30/24 Unknown Rx triamcinolone acetonide 0.1 % 1 applic topical BID #80 grams 03/12/24 08/30/24 Unknown Rx topical cream calcium 600 mg (as 1 cap PO BID #180 caps 03/1908/30/24 Unknown Rx carbonate)-vitamin D3 12.5 mcg (500 unit) capsule (Calcium with Vit D3) albuterol sulfate 90 mcg/actuation See Rx Instructions .Route 04/14/24 08/30/24 Unknown Rx aerosol inhaler .COMPLEX #9 grams docusate sodium 100 mg capsule See Rx Instructions PO DAILY #60 06/04/24 08/30/24 Unknown Rx caps amlodipine 5 mg tablet See Rx Instructions .Route 1 08/16/23 08/30/24 Unknown Rx .COMPLEX #180 tabs mupirocin 2 % topical ointment See Rx Instructions .Ro [place] 06/16/24 08/30/24 Unknown Rx .COMPLEX #22 grams montelukast 10 mg tablet 10 mg PO DAILY #90 tabs 01/0 09/0808/30/24 Unknown Rx (Singulair) sertraline 50 mg tablet See Rx Instructions .Route 0 08/10/24 08/30/24 Unknown Rx .COMPLEX #90 tabs benzonatate 100 mg capsule 100 mg PO TID PRN cough #30 caps 08/25/24 08/30/24 Unknown Rx buprenorphine 7.5 mcg/hour weekly 1 patch transdermal Q7D 08/25/24 08/30/24 Unknown History transdermal patch oseltamivir 75 mg capsule (Tamiflu) 75 mg PO BID 5 day s #10 caps 08/25/24 08/30/24 Unknown Rx naproxen 500 mg tablet See Rx Instructions .Route 0 08/28/24 08/30/24 Unknown Rx .COMPLEX #60 tabs naloxone 4 mg/actuation nasal spray See Rx Instruction s .Route .COMPLEX 08/30/24 08/30/24 Unknown History Allergies Allergy/AdvReac Type Severity Reaction Status Date / Time Latex, Natural Rubber Allergy Intermediate blisters Verified 08/25/24 10:44 Penicillins Allergy Intermediate hives Verified 08/25/24 10:44 Sulfa (Sulfonamide Allergy Intermediate hives Verified 08/25/24 10:44 Antibiotics) Current Medications Generic Name Dose Route Start Last Admin Trade Name Freq PRN Reason Stop Dose Admin Amlodipine Besylate 10 mg 08/30/24 09:00 08/30/24 08:29 Amlodipine 5 Mg Tablet PO 10 mg DAILY AURELIO Administration Bupropion HCl 300 mg 08/30/24 06:08 08/30/24 07:09 Bupropion Xl (24 Hr) 300 Mg Tablet PO 300 mg QAM AURELIO Administration Buspirone HCl 5 mg 08/30/24 06:15 08/30/24 07:09 Buspirone 10 Mg Tablet PO 5 mg Q8H AURELIO Administration Hydromorphone HCl 1 mg 08/30/24 06:11 08/30/24 08:34 Hydromorphone Hcl 0.5 Mg/0.5 Ml Inj IVP 1 mg Q2H PRN Administration severe pain Dextrose/Sodium Chloride 1,000 mls @ 75 mls/hr 08/30/24 06:08 08/30/24 07:08 Dextrose 5%-Sod Chloride 0.45% IV 75 mls/hr .[id number] AURELIO Administration Loratadine 10 mg 08/30/24 09:00 08/30/24 08:30 Loratadine 10 Mg Tablet PO 10 mg DAILY AURELIO Administration Montelukast Sodium 10 mg 08/30/24 09:00 08/30/24 08:29 Montelukast Sodium 10 Mg Tablet PO 10 mg DAILY AURELIO Administration Polyethylene Glycol 34 gm 08/30/24 09:00 08/30/24 08:48 Polyethylene Glycol 3350 Pkt 17 Gm PO Not Given DAILY AURELIO Senna 17.2 mg 08/30/24 09:00 08/30/24 08:30 Sennosides 8.6 Mg Tablet PO 17.2 mg BID AURELIO Administration Sertraline HCl 75 mg 08/30/24 09:00 08/30/24 08:29 Sertraline 50 Mg Tablet PO 75 mg DAILY AURELIO Administration PFSH Acute 2 PFSH: Medical History Myofascial pain syndrome Sacroiliitis Lumbar spinal stenosis Asthma Hyperlipidemia Deep vein thrombosis Osteoarthritis Compression fracture Depression Left leg cellulitis Venous stasis ulcer Acute bronchitis Chronic pain Blind AMD (age-related macular degeneration), wet Surgical History History of cholecystectomy History of bariatric surgery History of tonsillectomy History of knee surgery History of hysterectomy History of tubal ligation Social History Smoking and tobacco/nicotine status: current every day tobacco/nicotine user Vitals/I&O/Wt Last Vital Signs Temp 98.0 F 08/30/24 10:55 Pulse 95 08/30/24 10:55 Resp 16 08/30/24 10:55 BP 167/89 08/30/24 10:55 Pulse Ox 95 08/30/24 10:55 O2 Del Method Room Air 08/30/24 10:55 O2 Flow Rate 3 08/30/24 08:12 08/29/24 08/30/24 08/30/24 22:59 06:59 14:59 Output Total 550 / 550 Balance -550 / -550 Weight last 48 hrs Weight 180 lb Weight 175 lb Weight 175 lb Physical Exam 2 Const: COMMON NORMALS: no acute distress (Very anxious), average body habitus, patient oriented x3 and alert GENERAL APPEARANCE: cooperative and comfortable ORIENTATION/CONSCIOUSNESS: Yes awake HENMT: COMMON NORMALS: normocephalic and atraumatic HEAD & SCALP: n ormocephalic and atraumatic Eye: GENERAL EYE: appearance normal, both eyes and all related structures Chest: COMMONS NORMALS: normal inspection of the chest Resp: COMMON NORMALS: normal respiratory effort EFFORT & INSPECTION: Yes able to speak in complete sentences and Yes symmetric chest movement Extremity: RIGHT LOWER EXTREMITY: Yes hip joint (Patient becomes quite anxious even moving her down) Right hip: Yes palpation ( unable due to anxiety), Yes ROM (Not evaluated) and Yes neurovascular exam (Intact distally with motor function) Neuro: COMMON NORMALS: patient oriented x3 SENSORIUM/ORIENTATION: Yes alert Psych: COMMON NORMALS: mental status grossly normal APPEARANCE: Yes grossly normal ATTITUDE: Yes calm and Yes engaged ATTENTION/CONCENTRATION: Yes attention grossly intact Skin: COMMON NORMALS: no rashes or lesions noted GENERAL SKIN EXAM: no rashes or lesions noted Urinary Catheter Management: Carrillo: Cath Placed During This Visit: yes Urinary Catheter Date of Insertion: 08/30/24 Urinary Catheter Time of Insertion: 07:06 Data 08/30/24 03:36 08/30/24 03:36 Xray Ortho: My impression: I have reviewed the patient's imaging studies. Plain films of the hip and femur demonstrate that the patient has a total knee arthroplasty on the right with subsequent supracondylar femoral fixation in the distal third of the femur. This is around her total knee. Additionally, she has a comminuted intertrochanteric fracture of the right hip with subtrochanteric extension. A&P Assessment and plan (1) Closed intertrochanteric fracture of right hip: Patient presented to the emergency department with an intertrochanteric hip fracture with subtrochanteric extension on the right lower extremity. This is displaced and comminuted. Additionally, she has a past history of total knee arthroplasty with subsequent fracture of the femur under manipulation. This femur fracture required open reduction internal fixation with a supracondylar plate and screws. This precludes us from proceeding with long trochanteric nail. Therefore, we will plan for a short gamma 3 trochanteric nail to the right femur. This may require cerclage wiring. Qualifiers: Encounter type: initial encounter Fracture alignment: displaced Q ualified Code(s): S72.141A - Displaced intertrochanteric fracture of right femur, initial encounter for closed fracture (2) Subtrochanteric fracture of right femur: Qualifiers: Encounter type: initial encounter Fracture type: closed Fracture alignment: displaced Qualified Code(s): S72.21XA - Displaced subtrochanteric fracture of right femur, initial encounter for closed fracture PDMP PDMP Reviewed: Not Reviewed Coding Level of Care Code Acute Code for Chg Fwd Diagnoses Closed displaced intertrochanteric fracture of right femur, initial encounter S72.141A Encounter type: initial encounter Fracture alignment: displaced Closed displaced subtrochanteric fracture of right femur, initial encounter S72.21XA Encounter type: initial encounter Fracture type: closed Fracture alignment: displaced
[2024-08-30] MEDS: acetaminophen 1,000 MG/100 ML PIGGYBACK 400 MG IV (11:37)
[2024-08-30] MEDS: gabapentin 300 mg Capsule PO (11:38)
[2024-08-30] MEDS: ceFAZolin 2,000 mg SDV 2000 MG IVP ×2 (11:49→19:56)
[2024-08-30] MEDS: ceFAZolin 1,000 mg SDV 1000 MG IRRIGATION (12:50)
--- NOTE | 2024-08-30 13:30 | P.OP_ITS ---
Operative Report Date of procedure: August 30, 2024 Pre-op diagnosis: Right intertrochanteric hip fracture with subtrochanteric extension, prior right total knee arthroplasty with periprosthetic fracture during manipulation requiring ORIF with a lateral supracondylar plate Post-op diagnosis: Right intertrochanteric hip fracture with subtrochanteric extension, prior right total knee arthroplasty with periprosthetic fracture during manipulation requiring ORIF with a lateral supracondylar plate Post-op findings: Comminuted intertrochanteric and subtrochanteric hip fracture Procedure done: Open reduction internal fixation right intertrochanteric hip fracture with subtrochanteric extension utilizing the gamma 3 nail Implants: Wickr gamma nail system with a size 11 mm x 180 mm x 125 degree gamma 3 trochanteric nail with a proximal lag screw size 10.5 mm x 100 mm and distal l ocking screw size 5 mm x 40 mm Specimens removed/disposition: None Pathology: None Surgeon: Olga Brambila MD Movie Stunt Performer: None Anesthesia: General (Intubated, ASA 3) Estimated blood loss (mL): 100 IV fluids (mL): 800 Urine output (mL): 750 Complications: None Findings: Comminuted angulated displaced right intertrochanteric hip fracture with subtrochanteric extension Condition: stable Disposition: PACU (Then return to floor for postoperative rehabilitation and pain management) Brief History: Simi Casper is a 54 year old female who was in her usual state of health when she had a fall at home. Patient has a very complex past medical history. Orthopedically, she has had a total knee replacement on the right. A few weeks subsequent to the knee replacement, she had a fracture in her femur during a surgical manipulation. This required a supracondylar plate and screws. This plate obviously is up to the femoral shaft precluding the ability to proceed with long trochanteric nail. The patient has chronic pain and is on buprenorphine and morphine at home. Other medical history is significant and well outlined in the hospitalist history and physical. Patient notes she tripped on the way to the restroom and landed on her right hip. She instantly had pain. She is quite anxious when she is seen preoperatively. Procedure: Patient is brought to the operating theater. After undergoing adequate general anesthesia intubated, ASA 3, the patient was transferred to the [facility] table, positioned on the table and fluoroscopic guidance obtained throughout the surgical procedure. Prior to the commencement of the surgical procedure, a surgical pause was performed. At the time of the surgical pause, we confirmed the site and side of surgery as well as preoperative surgical markings and appropriate and timely administration of IV antibiotics, Ancef 2 g. Availability of equipment was also confirmed. Fluoroscopy was used to confirm the fracture was appropriately reduced in both AP and lateral planes. An incision was then made slightly above the greater trochanter to allow access to the greater trochanter. An awl was used to enter the greater trochanter and a guidewire was subsequently placed. Once the guidewire was confirmed to be in appropriate position in AP and lateral planes, reaming was accomplished over this to allow for the proximal diameter of the nail. Guidewire was then removed. An 11 mm x 180 mm x 125 degree nail was placed into appropriate position with positioning being confirmed in AP and lateral planes on the x-ray. It passed without difficulty. Guidewire was then passed through the jigging system into the femoral head. We wanted to be center or slightly inferior and posterior to center. Guidewire was placed into appropriate position. Once the guidewire was in appropriate position and this position was confirmed by x-ray. This was then measured and we chose a 10.5 mm by 100 mm lag screw. We reamed to allow for the lag screw to be placed. The lag screw was then passed into the femoral head through the trochanteric nail. This was passed uneventfully and again position was confirmed in AP and lateral planes. Compression was obtained under fluoroscopic guidance. The set screw was then placed in position, tightened completely, and only backed off 1/8 turn after the distal locking screw was placed. The construct was left in position and attention was directed distally. Cannulas were again used to determine appropriate placement for the distal screw. This was placed in position without difficulty. It was measured off of the drill. The appropriate length screw was then obtained and placed in position without difficulty. Once the screw was in position, we confirmed appropriate placement of the components, and we removed the jigging system. Attention was then directed to closure. The hip was copiously irrigated with normal saline with antibiotics. Following this it was dried and closed. Tensor fascia jeanne was closed proximally with 0 Vicryl in an interrupted fashion. Subcutaneous tissues were closed with 2-0 Monocryl, and the skin was closed with a continuous 3-0 Monocryl subcuticular stitch. This was then covered with Steri-Strips and OpSite. The patient was removed from the fracture table and returned to recovery in satisfactory condition. The patient will be discharged to the floor for postoperative rehabilitation and pain management. There were no specimens obtained. Related Problem List Diagnoses (1) Closed intertrochanteric fracture of right hip: (2) Subtrochanteric fracture of right femur:
[2024-08-30] MEDS: BUPivacaine-epi 0.5% 10 ML INJ 30 ML INJECTION (13:36)
--- NOTE | 2024-08-30 13:43 | PC.NURSE ---
Family is going to bring brupenorphine patch tomorrow Saturday08-30-24. Family is to give it to the charge nurse and to restart on patient per Dr. Brambila after clearing with pharmacy.
--- NOTE | 2024-08-30 14:04 | ANE.PACU2 ---
Inpatient post-anesthesia follow up: Airway intact: Yes Vital signs: Temperature 98.8 F Pulse Rate 84 Respiratory Rate 18 Blood Pressure 126/72 Pulse Oximetry 92 Oxygen Delivery Me thod Nasal Cannula Oxygen Flow Rate 2 Fraction of Inspir ed Oxygen Hydration adequate: Yes Nausea and vomiting: No Pain level: 1 Mental status: Baseline
--- NOTE | 2024-08-30 14:19 | PM.MISC ---
Miscellaneous Note Note: In today. Agree with H&P. Patient going for surgery shortly. Seen and preop holding area. Patient will be nonweightbearing after surgery and will require rehab at discharge. Patient agreeable.
[2024-08-30] MEDS: naproxen 500 mg Tablet PO (15:26)
[2024-08-30] MEDS: nicotine 14 mg Patch 1 PATCH TRANSDERMA (18:11)
[2024-08-30] MEDS: morphine IR 15 mg Tablet PO (21:02)
[2024-08-31] VITALS (12 sets, daily range): BP systolic 104–126; BP diastolic 63–78; PULSE 83–106; RESP 16–18; TEMP 36.7–37.3; O2SAT 92–97; BMI 28.1
[2024-08-31] MEDS: dextrose 5%-sod chloride 0.45% 1,000 ML 75 ML IV (02:16)
[2024-08-31] MEDS: morphine IR 15 mg Tablet PO ×5 (03:03→21:07)
[2024-08-31] MEDS: naproxen 500 mg Tablet PO ×2 (03:04→14:12)
[2024-08-31] MEDS: ceFAZolin 2,000 mg SDV 2000 MG IVP ×2 (03:04→11:41)
[2024-08-31 04:29] LABS: Basophils % 0.2 %; Eosinophils % 0.2 %; Hematocrit 29.3 % (36-47); Lymphocytes # 1.7 10^3/uL (0.8-4.8); Lymphocytes % 12.9 %; Mean Corpuscular HGB Conc 31.7 g/dL (30-55); Mean Corpuscular Hemoglobin 30.1 pg (27-33); Mean Corpuscular Volume 94.8 fl (85-98); Mean Platelet Volume 10.5 fL (7.4-10.4); Monocytes # 1.1 10^3/uL (0.2-0.9); Monocytes % 8.3 %; Neutrophils # 10.02 10^3/uL (1.8-7.7); Nucleated Red Blood Cells % 0 %; Platelet Count 251 10^3/cmm (157-399); Red Blood Count 3.09 10^6/uL (3.85-5.65); Red Cell Distribution Width 15.1 % (12.1-15.1); White Blood Count 12.85 10^3/uL (3.29-11.43)
[2024-08-31 04:49] LABS: Anion Gap 10.4 (5-19); Blood Urea Nitrogen 7 mg/dL (6-20); Calcium 7.6 mg/dL (8.5-10.5); Carbon Dioxide 28 mmol/L (22-29); Chloride 100 mmol/L (98-107); Creatinine Clr Calc Pharmacy 143.0086; Glomerular Filtration Rate 129.1 mL/min (90-130); Glucose 118 mg/dL (65-115); Magnesium 1.6 mg/dL (1.7-2.3); Osmolality Calculated 277 mOsm/kg (285-295); Phosphorus 2.4 mg/dL (2.5-4.5); Potassium 4.4 mmol/L (3.5-5.1); Sodium 134 mmol/L (136-145)
[2024-08-31] MEDS: BuSPIRONE 10 mg Tablet 5 MG PO ×3 (05:49→21:06)
[2024-08-31] MEDS: buPROPion XL (24 HR) 300 mg Tablet PO (05:49)
[2024-08-31] MEDS: tizanidine 4 mg Tablet PO ×2 (06:15→21:07)
[2024-08-31] MEDS: aspirin 325 mg EC Tablet PO (07:36)
[2024-08-31] MEDS: sennosides 8.6 mg Tablet 17.2 MG PO ×2 (07:36→17:00)
[2024-08-31] MEDS: amlodipine 5 mg Tablet 10 MG PO (07:36)
[2024-08-31] MEDS: loratadine 10 mg Tablet PO (07:37)
[2024-08-31] MEDS: sertraline 50 mg Tablet 75 MG PO (07:37)
[2024-08-31] MEDS: montelukast sodium 10 mg Tablet PO (07:37)
[2024-08-31] MEDS: gabapentin 300 mg Capsule 600 MG PO ×2 (07:38→14:12)
[2024-08-31] MEDS: benzonatate 100 mg Capsule PO ×2 (07:38→14:12)
[2024-08-31] MEDS: polyethylene glycol 3350 Pkt 17 gm 34 GM PO (07:39)
[2024-08-31] MEDS: nicotine 14 mg Patch 1 PATCH TRANSDERMA (07:39)
--- NOTE | 2024-08-31 09:01 | PC.CHAP ---
Pastoral Care Encounter/Spiritual Assessment Type of Contact [] Declined operations chief visit [] Patient/Family/Request visit [] Outpatient visit [] Follow-up visit [] Physician referral [] Code/Alert [x] Routine visit [] Staff referral [] Actively dying [] Patient sleeping [] Family support [] [] Out of room [] Palliative care [] [x] Receiving care in room [] Pre-surgical visit [] Trauma [] Long length of stay [] ICU visit [] Other: Relational/Emotional Strength [] Patient feels connected with others/family/visitors/staff [] Distress [] Loneliness/isolation [] Abandonment Spirituality of Patient [] Person of Sofi [] Attends Cheondoism of their Sofi [] Believes in Prayer [] Reads Bible or Episcopal materials [] There are Spiritual issues to be addressed Manufacturing Assistant Interventions [x] Prayer [] Active listening [] Non-anxious presence [] Spiritual/emotional support [] Crisis/trauma care [] Spiritual counseling [] Bereavement support [] Provided bereavement packet [] Provided Bible/devotional materials [] Provided toy/stuffed animal, coloring book to patient or family member [] Provided Communion [] Anointing/[place] [] Salvation [] Completed spiritual assessment [] Other: Impact on Illness or Injury [] Angry [] Fearful [] Anxious [] Often cries [] Exhaustion [] Unable to work [] Unable to attend yazdanism [] Unable to walk/stand [] Unable to read [] Unable to drive [] Unable to eat/drink [] Unable to sleep [] Unable to be with family [] Patient intubated [] Other: Summary Time spent with patient
--- NOTE | 2024-08-31 14:37 | P.PN_ITS ---
Subjective 2 Subjective: Patient is seen in her room. Pain is relatively well-managed. She agrees that skilled facility would be appropriate for her postoperative rehabilitation. Medications: Reviewed: Yes Vitals/I&O/Wt Last Vital Signs Temp 98.8 F 08/31/24 12:00 Pulse 84 08/31/24 12:00 Resp 18 08/31/24 12:00 BP 126/72 08/31/24 12:00 Pulse Ox 92 08/31/24 12:00 O2 Del Method Nasal Cannula 08/31/24 12:00 O2 Flow Rate 2 08/30/24 20:00 08/30/24 08/31/24 08/31/24 22:59 06:59 14:59 Intake Total 2960.00 / 3060.00 480 / 3540.00 960 / 960 Output Total 1950 / 3350 1600 / 4950 1550 / 1550 Balance 1010.00 / -290.00 -1120 / -1410.00 -590 / -590 Weight last 48 hrs Weight 180 lb Weight 180 lb Weight 175 lb Weight 175 lb Physical Exam 2 Const: COMMON NORMALS: no acute distress (Very anxious), average body habitus, patient oriented x3 and alert GENERAL APPEARANCE: cooperative and comfortable ORIENTATION/CONSCIOUSNESS: Yes awake HENMT: COMMON NORMALS: normocephalic and atraumatic HEAD & SCALP: n ormocephalic and atraumatic Eye: GENERAL EYE: appearance normal, both eyes and all related structures Chest: COMMONS NORMALS: normal inspection of the chest Resp: COMMON NORMALS: normal respiratory effort EFFORT & INSPECTION: Yes able to speak in complete sentences and Yes symmetric chest movement Extremity: RIGHT LOWER EXTREMITY: Yes hip joint (Dressing is dry and intact.) Right hip: Yes palpation (Minimal tenderness.), Yes ROM (Not evaluated) and Yes neurovascular exam (Intact distally without evidence of DVT) Neuro: COMMON NORMALS: patient oriented x3 SENSORIUM/ORIENTATION: Yes alert Psych: COMMON NORMALS: mental status grossly normal APPEARANCE: Yes grossly normal ATTITUDE: Yes calm and Yes engaged ATTENTION/CONCENTRATION: Yes attention grossly intact Skin: COMMON NORMALS: no rashes or lesions noted GENERAL SKIN EXAM: no rashes or lesions noted Urinary Catheter Management: Carrillo: Cath Placed During This Visit: yes Reason for Continuing Indwelling Catheter: Required Immobilization for Trauma or Surgery or Anesthesia Urinary Catheter Date of Insertion: 08/30/24 Urinary Catheter Time of Insertion: 07:06 Data 09/01/24 05:23 09/01/24 05:23 A&P Assessment and plan (1) Closed intertrochanteric fracture of right hip: Patient presented to the emergency department with an intertrochanteric hip fracture with subtrochanteric extension on the right lower extremity. This is displaced and comminuted. Additionally, she has a past history of total knee arthroplasty with subsequent fracture of the femur under manipulation. This femur fracture required open reduction internal fixation with a supracondylar plate and screws. This precludes us from proceeding with long trochanteric nail. Patient underwent gamma 3 trochanteric nail uneventfully. She is working with physical therapy, and plans will be made for her discharge. She is considering appropriately discharged to halfway. Qualifiers: Encounter type: initial encounter Fracture alignment: displaced Q ualified Code(s): S72.141A - Displaced intertrochanteric fracture of right femur, initial encounter for closed fracture (2) Subtrochanteric fracture of right femur: Qualifiers: Encounter type: initial encounter Fracture alignment: displaced F racture type: closed Qualified Code(s): S72.21XA - Displaced subtrochanteric fracture of right femur, initial encounter for closed fracture PDMP PDMP Reviewed: Not Reviewed Attestations 2 Medical Necessity Statement*: Per hospitalist team. Coding Level of Care Code Acute Code for Chg Fwd Diagnoses Closed displaced intertrochanteric fracture of right femur, initial encounter S72.141A Encounter type: initial encounter Fracture alignment: displaced Closed displaced subtrochanteric fracture of right femur, initial encounter S72.21XA Encounter type: initial encounter Fracture alignment: displaced Fracture type: closed
--- NOTE | 2024-08-31 18:04 | P.PN_ITS ---
Subjective 2 Subjective: Patient is status post gamma nail fixation of her right intertrochanteric fracture yesterday. Participating with physical therapy when seen today. Vitals/I&O/Wt Last Vital Signs Temp 99.0 F 08/31/24 16:00 Pulse 106 H 08/31/24 16:00 Resp 17 08/31/24 17:00 BP 104/63 08/31/24 16:00 Pulse Ox 92 08/31/24 16:00 O2 Del Method Room Air 08/31/24 16:00 O2 Flow Rate 2 08/30/24 20:00 08/31/24 08/31/24 08/31/24 06:59 14:59 22:59 Intake Total 480 / 3540.00 960 / 960 1600 / 2560 Output Total 1600 / 4950 1550 / 1550 1350 / 2900 Balance -1120 / -1410.00 -590 / -590 250 / -340 Weight last 48 hrs Weight 81.647 kg Weight 81.647 kg Weight 79.379 kg Weight 79.379 kg Physical Exam 2 Narrative: General: No acute distress, AO x3 HEENT: PERRLA, pupils bilaterally equal and reactive, pallors not present Chest: Normal vesicular breath sounds, no added sounds, equal good air entry bilaterally CVS: S1-S2 regular, no murmurs, no tachycardia, no gallops, no rubs Abdomen: Soft, nontender, no organomegaly, bowel sounds present Neuro: No focal deficits, no facial deformity, AO x3, power 5/5 in all limbs Urinary Catheter Management: Carrillo: Cath Placed During This Visit: yes Reason for Continuing Indwelling Catheter: Required Immobilization for Trauma or Surgery or Anesthesia Urinary Catheter Date of Insertion: 08/30/24 Urinary Catheter Time of Insertion: 07:06 Data 08/31/24 03:04 08/31/24 03:04 A&P Assessment and plan (1) Hip fracture: Right hip fracture secondary to mechanical fall Strict bedrest Carrillo catheter after pain control improves Multimodal pain control N.p.o. status Orthopedic surgery consulted (2) Chronic pain: Patient on buprenorphine/morphine prior to arrival Buprenorphine patch removed in ED Chronic opioid use will make her acute pain more difficult to control (3) Leukocytosis: Suspect stress-induced Monitor for evidence of infection (4) Constipation: Start bowel regiment (5) Anxiety: Continue home anxiolytics after home list is updated (6) Asthma: Not in exacerbation Breathing treatments as needed Plan DVT prophylaxis: SCD August 31, 2024 No acute interim events. Patient participating with physical therapy. Awaiting appropriate disposition planning. Her family is to bring in buprenorphine patches from home as we do not have it on formulary currently. Continue pain control with as needed morphine. PDMP PDMP Reviewed: Not Reviewed Attestations 2 Medical Necessity Statement*: Ongoing appropriate disposition planning Coding Level of Care Code Acute Code for [facility] Diagnoses Hip fracture S72.009A Chronic pain G89.29 Leukocytosis D72.829 Constipation K59.00 Anxiety F41.9 Asthma J45.909
[2024-08-31 22:05] LABS: Influenza A NEGATIVE (Negative); Influenza B NEGATIVE (Negative); Respiratory Syncytial Virus Ce NEGATIVE (Negative); SARS-CoV-2 PCR NEGATIVE (Negative)
[2024-09-01] VITALS (8 sets, daily range): BP systolic 99–120; BP diastolic 51–61; PULSE 83–89; RESP 14–18; TEMP 36.6–36.8; O2SAT 92–95
[2024-09-01] MEDS: naproxen 500 mg Tablet PO (01:08)
[2024-09-01] MEDS: morphine IR 15 mg Tablet PO ×3 (01:08→09:20)
[2024-09-01] MEDS: BuSPIRONE 10 mg Tablet 5 MG PO (05:37)
[2024-09-01] MEDS: buPROPion XL (24 HR) 300 mg Tablet PO (05:38)
[2024-09-01 05:41] LABS: Basophils # 0.1 10^3/uL (0.0-0.1); Basophils % 0.6 %; Eosinophils # 0.1 10^3/uL (0.0-0.8); Eosinophils % 0.9 %; Hematocrit 26.8 % (36-47); Lymphocytes # 1.5 10^3/uL (0.8-4.8); Lymphocytes % 14.8 %; Mean Corpuscular HGB Conc 31.3 g/dL (30-55); Mean Corpuscular Hemoglobin 29.4 pg (27-33); Mean Corpuscular Volume 93.7 fl (85-98); Mean Platelet Volume 10.1 fL (7.4-10.4); Monocytes # 0.8 10^3/uL (0.2-0.9); Monocytes % 7.6 %; Neutrophils # 7.81 10^3/uL (1.8-7.7); Neutrophils % 75.7 %; Nucleated Red Blood Cells % 0 %; Platelet Count 265 10^3/cmm (157-399); Red Blood Count 2.86 10^6/uL (3.85-5.65); Red Cell Distribution Width 15.3 % (12.1-15.1); White Blood Count 10.31 10^3/uL (3.29-11.43)
[2024-09-01 06:08] LABS: Alanine Aminotransferase 21 U/L (0-33); Albumin Level 2.4 g/dL (3.5-5.2); Alkaline Phosphatase 97 U/L (35-105); Anion Gap 13.1 (5-19); Aspartate Amino Transferase 22 U/L (0-32); Blood Urea Nitrogen 8 mg/dL (6-20); Calcium 7.7 mg/dL (8.5-10.5); Carbon Dioxide 27 mmol/L (22-29); Chloride 99 mmol/L (98-107); Creatinine Clr Calc Pharmacy 117.9003; Globulin 2.5 g/dL (1.3-4.6); Glomerular Filtration Rate 104.6 mL/min (90-130); Glucose 108 mg/dL (65-115); Osmolality Calculated 279 mOsm/kg (285-295); Potassium 4.1 mmol/L (3.5-5.1); Sodium 135 mmol/L (136-145); Total Bilirubin 0.2 mg/dL (0.15-1.2); Total Protein 4.9 g/dL (6.6-8.7)
[2024-09-01] MEDS: gabapentin 300 mg Capsule 600 MG PO (07:54)
[2024-09-01] MEDS: sertraline 50 mg Tablet 75 MG PO (07:54)
[2024-09-01] MEDS: aspirin 325 mg EC Tablet PO (07:54)
[2024-09-01] MEDS: montelukast sodium 10 mg Tablet PO (07:55)
[2024-09-01] MEDS: tizanidine 4 mg Tablet PO (07:55)
[2024-09-01] MEDS: loratadine 10 mg Tablet PO (07:55)
[2024-09-01] MEDS: nicotine 14 mg Patch 1 PATCH TRANSDERMA (07:55)
[2024-09-01] MEDS: amlodipine 5 mg Tablet 10 MG PO (07:55)
--- NOTE | 2024-09-01 09:31 | PC.CHAP ---
Pastoral Care Encounter/Spiritual Assessment Type of Contact [] Declined sfdc architect visit [] Patient/Family/Request visit [] Outpatient visit [] Follow-up visit [] Physician referral [] Code/Alert [] Routine visit [] Staff referral [] Actively dying [x] Patient sleeping [] Family support [] [] Out of room [] Palliative care [] [] Receiving care in room [] Pre-surgical visit [] Trauma [] Long length of stay [] ICU visit [] Other: Relational/Emotional Strength [] Patient feels connected with others/family/visitors/staff [] Distress [] Loneliness/isolation [] Abandonment Spirituality of Patient [] Person of Sofi [] Attends Latter-Day of their Sofi [] Believes in Prayer [] Reads Bible or Episcopalian materials [] There are Spiritual issues to be addressed Information Assurance Engineer Interventions [] Prayer [] Active listening [] Non-anxious presence [] Spiritual/emotional support [] Crisis/trauma care [] Spiritual counseling [] Bereavement support [] Provided bereavement packet [] Provided Bible/devotional materials [] Provided toy/stuffed animal, coloring book to patient or family member [] Provided Communion [] Anointing/Montara [] Salvation [] Completed spiritual assessment [] Other: Impact on Illness or Injury [] Angry [] Fearful [] Anxious [] Often cries [] Exhaustion [] Unable to work [] Unable to attend anabaptism [] Unable to walk/stand [] Unable to read [] Unable to drive [] Unable to eat/drink [] Unable to sleep [] Unable to be with family [] Patient intubated [] Other: Summary Time spent with patient
--- NOTE | 2024-09-01 10:41 | PC.NURSE ---
REPORT CALLED TO [facility].
--- NOTE | 2024-09-01 19:18 | PM.DCS ---
Discharge Providers Date of Admission: 08/30/24 05:21 Date of Discharge: September 01, 2024 Attending Provider at Admission: Stevo Hernández MD Attending Provider at Discharge: Court Lewis MD Primary Care Provider: Nhi Gilliam APN Diagnoses at Discharge Discharge Diagnosis (1) Closed intertrochanteric fracture of right hip: Status: Acute Qualifiers: Encounter type: initial encounter Fracture alignment: displaced Qualified Code(s): S72.141A - Displaced intertrochanteric fracture of right femur, initial encounter for closed fracture (2) Subtrochanteric fracture of right femur: Status: Acute Qualifiers: Encounter type: initial encounter Fracture alignment: displaced Fracture type: closed Qualified Code(s): S72.21XA - Displaced subtrochanteric fracture of right femur, initial encounter for closed fracture Reason for Visit Reason for Visit: FALL Hospital Course Hospital Course Simi Casper is a 54 year old female with a past medical history significant for chronic pain on buprenorphine and morphine, 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 Patient reports hip pain began after falling at home prior to arrival. She reports she tripped while she was going to the restroom. She landed on her right hip and instantly had pain.she was found to have comminuted displaced fracture of the intertrochanteric right femur and right femoral neck. She underwent Open reduction internal fixation right intertrochanteric hip fracture with subtrochanteric extension utilizing the gamma 3 nail on 08/30. Patient tolerated procedure well, except for post op anemia. No overt signs of bleeding. Her home pain regimen was continued without any changes. Physical Exam Narrative: General: No acute distress, AO x3 HEENT: PERRLA, pupils bilaterally equal and reactive, pallors not present Chest: Normal vesicular breath sounds, no added sounds, equal good air entry bilaterally CVS: S1-S2 regular, no murmurs, no tachycardia, no gallops, no rubs Abdomen: Soft, nontender, no organomegaly, bowel sounds present Neuro: No focal deficits, no facial deformity, AO x3, power 5/5 in all limbs Urinary Catheter Management: Carrillo: Cath Placed During This Visit: yes, but has since been removed by the nurse Reason for Continuing Indwelling Catheter: Decision to DC Catheter Urinary Catheter Date of Insertion: 08/30/24 Urinary Catheter Time of Insertion: 07:06 Date Urinary Catheter Removed: 09/01/24 Time Urinary Catheter Discontinued: 05:57 Discharge Data Studies Completed and Pending Completed Studies During Hospitalization Category Date Time Status CXRP [XR chest 1V portable [id number]] Stat Exams 08/30/24 04:12 Completed XR femur RT min 2V* [id number] Stat Exams 08/30/24 04:12 Completed XR hip RT 2-3V wo/w pel* [id number] Routine Exams 08/30/24 11:30 Completed XR hip RT 2-3V wo/w pel* [id number] Stat Exams 08/30/24 03:39 Completed Radiology Impressions Chest X-Ray 08/30/24 04:12 IMPRESSION: No acute findings. Femur X-Ray 08/30/24 04:12 IMPRESSION: Intertrochanteric fracture. Hip/Pelvis X-Ray 08/30/24 11:30 IMPRESSION: 1. Satisfactory ORIF of an intertrochanteric fracture of the RIGHT hip. Laboratory Results WBC 10.31 10^3/uL (3.29-11.43) 09/01/24 05:23 RBC 2.86 10^6/uL (3.85-5.65) L 09/01/24 05:23 Hgb 8.40 g/dL (11.27-16.99) L 09/01/24 05:23 Hct 26.8 % (36-47) L 09/01/24 05:23 MCV 93.7 fl (85-98) 09/01/24 05:23 MCH 29.4 pg (27-33) 09/01/24 05:23 MCHC 31.3 g/dL (30-55) 09/01/24 05:23 RDW 15.3 % (12.1-15.1) H 09/01/24 05:23 Plt Count 265 10^3/cmm (157-399) 09/01/24 05:23 MPV 10.1 fL (7.4-10.4) 09/01/24 05:23 Neut % (Auto) 75.7 % 09/01/24 05:23 Lymph % (Auto) 14.8 % 09/01/24 05:23 Cambria % (Auto) 7.6 % 09/01/24 05:23 Eos % (Auto) 0.9 % 09/01/24 05:23 Baso % (Auto) 0.6 % 09/01/24 05:23 Neut # (Auto) 7.81 10^3/uL (1.8-7.7) H 09/01/24 05:23 Lymph # (Auto) 1.5 10^3/uL (0.8-4.8) 09/01/24 05:23 Cambria # (Auto) 0.8 10^3/uL (0.2-0.9) 09/01/24 05:23 Eos # (Auto) 0.1 10^3/uL (0.0-0.8) 09/01/24 05:23 Baso # (Auto) 0.1 10^3/uL (0.0-0.1) 09/01/24 05:23 Nucleated RBC % (auto) 0 % 09/01/24 05:23 Nucleated RBCs # 0.0 /100WBC 09/01/24 05:23 Sodium 135 mmol/L (136-145) L 09/01/24 05:23 Potassium 4.1 mmol/L (3.5-5.1) 09/01/24 05:23 Chloride 99 mmol/L (98-107) 09/01/24 05:23 Carbon Dioxide 27 mmol/L (22-29) 09/01/24 05:23 Anion Gap 13.1 (5-19) 09/01/24 05:23 BUN 8 mg/dL (6-20) 09/01/24 05:23 Creatinine 0.6 mg/dL (0.5-0.9) 09/01/24 05:23 GFR Calculation 104.6 mL/min (90-130) 09/01/24 05:23 Glucose 108 mg/dL (65-115) 09/01/24 05:23 Calculated Osmolality 279 mOsm/kg (285-295) L 09/01/24 05:23 Calcium 7.7 mg/dL (8.5-10.5) L 09/01/24 05:23 Phosphorus 2.4 mg/dL (2.5-4.5) L 08/31/24 03:04 Magnesium 1.6 mg/dL (1.7-2.3) L 08/31/24 03:04 Total Bilirubin 0.2 mg/dL (0.15-1.2) 09/01/24 05:23 AST 22 U/L (0-32) 09/01/24 05:23 ALT 21 U/L (0-33) 09/01/24 05:23 Alkaline Phosphatase 97 U/L (35-105) 09/01/24 05:23 Total Protein 4.9 g/dL (6.6-8.7) L 09/01/24 05:23 Albumin 2.4 g/dL (3.5-5.2) L 09/01/24 05:23 Globulin 2.5 g/dL (1.3-4.6) 09/01/24 05:23 Procalcitonin 0.06 ng/mL (0-0.5) 08/30/24 03:36 Influenza A (PCR) Negative (Negative) 08/31/24 21:00 Influenza Type B (PCR) Negative (Negative) 08/31/24 21:00 RSV (PCR) Negative (Negative) 08/31/24 21:00 SARS-CoV-2 (PCR) Negative (Negative) 08/31/24 21:00 Blood Type A Positive 08/30/24 09:58 Rho(D) Type Rh positive 08/30/24 09:58 Antibody Screen Negative 08/30/24 09:58 Vitals Last Vital Signs Temp 98.2 F 09/01/24 12:00 Pulse 84 09/01/24 12:00 Resp 16 09/01/24 12:00 BP 113/61 09/01/24 12:00 Pulse Ox 92 09/01/24 12:00 O2 Del Method Room Air 09/01/24 08:00 O2 Flow Rate 2 08/30/24 20:00 Discharge Plan Discharge Patient Disposition: Xfer SNF Condition: Stable Prescriptions: New acetaminophen 325 mg Tablet 650 mg PO Q6H PRN (Reason: Mild/Mod Pain Or Temp >/= 101) 15 Days Qty: 0 0RF aspirin 325 mg Tablet,Delayed Release (Dr/Ec) 325 mg PO DAILY 30 Days Qty: 0 0RF Continued tizanidine 4 mg capsule 4 mg PO Q8H PRN (Reason: muscle spasms) multivitamin Tablet 1 tab PO DAILY polyethylene glycol 3350 [Miralax] 17 gram/dose powder 17 g PO DAILY Qty: 510 4RF triamcinolone acetonide 0.1 % cream 1 applic topical BID Qty: 80 0RF docusate sodium 100 mg capsule See Rx Instructions PO DAILY Qty: 60 0RF Rx Instructions: 1-2 tabs daily as needed for constipation. loratadine [Allergy Relief (loratadine)] 10 mg tablet 10 mg PO DAILY morphine 15 mg tablet 7.5 - 15 mg PO Q4H PRN (Reason: Pain) gabapentin 600 mg tablet 600 mg PO Q6H PRN (Reason: nerve pain) buprenorphine 7.5 mcg/hour patch weekly 1 patch transdermal Q7D benzonatate 100 mg capsule 100 mg PO TID PRN (Reason: cough) Qty: 30 0RF bupropion HCl 300 mg tablet extended release 24 hr 300 mg PO QAM Qty: 90 2RF buspirone 5 mg tablet 5 mg PO Q8H Qty: 270 2RF calcium carbonate-vitamin D3 [Calcium 600 with Vitamin D3] 600 mg-12.5 mcg (500 unit) capsule 1 cap PO BID Qty: 180 3RF albuterol sulfate 90 mcg/actuation HFA aerosol inhaler See Rx Instructions .ROUTE .COMPLEX Qty: 9 0RF Dose Instruction: INHALE 2 PUFFS BY MOUTH EVERY 6 HOURS NEEDED Rx Instructions: INHALE 2 PUFFS BY MOUTH EVERY 6 HOURS NEEDED mupirocin 2 % ointment See Rx Instructions .ROUTE .COMPLEX Qty: 22 0RF Dose Instruction: APPLY TOPICALLY TWICE DAILY Rx Instructions: APPLY TOPICALLY TWICE DAILY montelukast [Singulair] 10 mg tablet 10 mg PO DAILY Qty: 90 2RF sertraline 50 mg tablet See Rx Instructions .ROUTE .COMPLEX Qty: 90 0RF Dose Instruction: TAKE 1 & 1/2 (ONE & ONE-HALF) TABLETS BY MOUTH ONCE DAILY Rx Instructions: TAKE 1 & 1/2 (ONE & ONE-HALF) TABLETS BY MOUTH ONCE DAILY naloxone 4 mg/actuation spray,non-aerosol See Rx Instructions .ROUTE .COMPLEX Rx Instructions: ADMINISTER A SINGLE SPRAY IN ONE NOSTRIL UPON SIGNS OF OPIOID OVERDOSE. CALL 911. REPEAT IN ALTERNATE NOSTRIL AFTER 3 MINUTES IF NO RESPONSE. naproxen 500 mg tablet See Rx Instructions .ROUTE .COMPLEX PRN (Reason: prn) Qty: 60 0RF Dose Instruction: Take 1 tablet by mouth twice daily Rx Instructions: Take 1 tablet by mouth twice daily Discontinued oseltamivir [Tamiflu] 75 mg capsule 75 mg PO BID 5 Days Qty: 10 0RF No Action amlodipine 5 mg tablet See Rx Instructions .ROUTE .COMPLEX Qty: 180 0RF Dose Instruction: Take 2 tablets by mouth once daily Rx Instructions: Take 2 tablets by mouth once daily Discharge Orders: Discharge Order (Routine); Ordered 09/01/24 Ordered By: Court Lewis Other Ambulatory Orders: Hemoglobin and Hematocrit (Routine) Timeframe: [id number] Facility: [facility] - Location: Lab - Main Lab Ordered By: Court Lewis Referrals: [facility] [Outside] Nhi Gilliam FNP [Primary Care Provider] - Olga Brambila MD [Physician] - 09/08/24 1:00 pm Discharge Activity: Limit activity as instructed, Use walker/crutches as instructed, Wheelchair as instructed and As per PT/OT instructions Patient Instructions: Acute Wound Care (DC), Opioid Safety, Post Anesthesia Care Activity Restrictions/Additional Instructions: Toe-touch weightbearing to operative side. You may change the dressing as needed. Otherwise, it may remain in place. Remain touchdown weightbearing until you are seen in follow-up in the office. You may shower and get the dressing wet, but do not soak your hip. Discharge Attestations Time Spent in Discharge Care*: greater than 30 min Quality Metrics Clinical Quality Measures [ No reported AMI, CVA or VTE this stay] Coding Level of Care Code Acute Code for Chg Fwd Diagnoses Closed displaced intertrochanteric fracture of right femur, initial encounter S72.141A Encounter type: initial encounter Fracture alignment: displaced Closed displaced subtrochanteric fracture of right femur, initial encounter S72.21XA Encounter type: initial encounter Fracture alignment: displaced Fracture type: closed
== END 2024-09-01 12:01 | disposition skilled nursing facility (03) | DRG 482 ==
LOC: ER 05:10 → MEDSURG 05:22
PROVIDERS: Specialist; Admitting Provider Internal Medicine; Emergency Provider Emergency Medicine; PCP Nurse Practitioner; Visit Provider Student in an Organized Health Care Education/Training Program
PROC: 0QS606Z Reposition Right Upper Femur with Intramedullary Internal Fixation Device, Open Approach (ICD-10-PCS; principal; 2024-08-30 11:30)
DX: S72.141A Displaced intertrochanteric fracture of right femur, initial encounter for closed fracture (principal); S72.21XA Displaced subtrochanteric fracture of right femur, initial encounter for closed fracture; G89.29 Other chronic pain; H35.3290 Exudative age-related macular degeneration, unspecified eye, stage unspecified; H54.7 Unspecified visual loss; F41.9 Anxiety disorder, unspecified; F32.A Depression, unspecified; D64.89 Other specified anemias; K59.00 Constipation, unspecified; J45.909 Unspecified asthma, uncomplicated; Z86.718 Personal history of other venous thrombosis and embolism; Z87.81 Personal history of (healed) traumatic fracture; Z98.84 Bariatric surgery status; W19.XXXA Unspecified fall, initial encounter; Y92.009 Unspecified place in unspecified non-institutional (private) residence as the place of occurrence of the external cause
CPT/HCPCS: 36415; 51702; 71045; 73502; 73552; 76000; 80048; 80053; 83735; 84100; 84145; 85025; 86850; 86900; 87637; 93005; 94664; 96374; 96376; 97110; 97161; 97167; 97530; 99285; C1713; C1776; J0131; J0690; J1171; J1885; J2360; J7030; J7799

== ENCOUNTER → 2024-09-11 11:52 | Outpatient (BNVA) | payer MEDICARE, MEDICAID, SELFPAY | PROVIDERS: PCP Nurse Practitioner; Visit Provider Nurse Practitioner | DX: S72.21XD Displaced subtrochanteric fracture of right femur, subsequent encounter for closed fracture with routine healing (principal); X58.XXXD Exposure to other specified factors, subsequent encounter | CPT/HCPCS: 73502 ==

== ENCOUNTER → 2024-10-05 11:22 | Outpatient (BNVA) | payer MEDICARE, MEDICAID, SELFPAY | PROVIDERS: PCP Nurse Practitioner; Visit Provider Nurse Practitioner | DX: Z98.890 Other specified postprocedural states (principal); I82.401 Acute embolism and thrombosis of unspecified deep veins of right lower extremity | CPT/HCPCS: 73502; 99024 ==

== ENCOUNTER → 2024-10-08 11:19 | Outpatient (BNVA) | payer MEDICARE, MEDICAID, SELFPAY | PROVIDERS: PCP Nurse Practitioner; Visit Provider Nurse Practitioner Family | DX: I87.2 Venous insufficiency (chronic) (peripheral) (principal); L57.8 Other skin changes due to chronic exposure to nonionizing radiation; L81.4 Other melanin hyperpigmentation; D69.2 Other nonthrombocytopenic purpura; L81.0 Postinflammatory hyperpigmentation | CPT/HCPCS: 99203 ==

== ENCOUNTER → 2024-11-06 11:44 | Outpatient (BNVA) | payer MEDICARE, MEDICAID, SELFPAY | PROVIDERS: PCP Nurse Practitioner; Visit Provider Nurse Practitioner | DX: S72.141D Displaced intertrochanteric fracture of right femur, subsequent encounter for closed fracture with routine healing (principal); Z98.890 Other specified postprocedural states; X58.XXXD Exposure to other specified factors, subsequent encounter | CPT/HCPCS: 73502; 99024 ==

== ENCOUNTER → 2024-11-13 10:20 | Outpatient (BNVA) | payer MEDICARE, MEDICAID, SELFPAY | PROVIDERS: PCP Nurse Practitioner; Visit Provider Physician Assistant | DX: M75.41 Impingement syndrome of right shoulder (principal); M19.012 Primary osteoarthritis, left shoulder; M75.42 Impingement syndrome of left shoulder; M25.511 Pain in right shoulder | CPT/HCPCS: 20610; 73030; 99213; J3301; J9999 ==

== ENCOUNTER 2024-12-08 11:04 | Outpatient (CLI) | payer MEDICARE, MEDICAID, SELFPAY ==
--- NOTE | 2024-12-08 11:00 | MM_ITS ---
WS: [id number] Bilateral screening 3D tomosynthesis digital mammogram, 12/08/2024 11:12 AM Clinical Data: Z12.39 - Encounter for other screening for malignant neop... Comparison: 09/03/2023, 07/31/2022, 03/09/2021 Findings: No spiculated masses or clustered calcifications are seen. There are no secondary signs of carcinoma. MM/MM scr BI tomosynthesis [id number] Impression: Negative bilateral mammogram unchanged. Recommend annual screening mammograms. BIRADS: 1 - Negative. FOLLOW UP: 1 Year Follow-up DENSITY: There are scattered areas of fibroglandular density. The CAD formula checker was used
== END 2024-12-08 11:05 | disposition home or self-care (01) ==
PROVIDERS: PCP Nurse Practitioner; Visit Provider Nurse Practitioner
DX: Z12.31 Encounter for screening mammogram for malignant neoplasm of breast (principal); R92.323 Mammographic fibroglandular density, bilateral breasts
CPT/HCPCS: 77063; 77067

== ENCOUNTER → 2025-01-12 11:14 | Outpatient (BNVA) | payer MEDICARE, MEDICAID, SELFPAY | PROVIDERS: PCP Nurse Practitioner; Visit Provider Student in an Organized Health Care Education/Training Program | DX: M75.42 Impingement syndrome of left shoulder (principal); M19.012 Primary osteoarthritis, left shoulder | CPT/HCPCS: 99214 ==

== ENCOUNTER → 2025-01-25 11:11 | Outpatient (BNVA) | payer MEDICARE, MEDICAID, SELFPAY | PROVIDERS: PCP Nurse Practitioner; Visit Provider Nurse Practitioner | DX: Z98.890 Other specified postprocedural states (principal) | CPT/HCPCS: 73502; 99214 ==

== ENCOUNTER 2025-02-11 10:07 | Day surgery (SDC) | payer MEDICARE, MEDICAID, SELFPAY ==
[2025-02-11] VITALS (12 sets, daily range): BP systolic 111–151; BP diastolic 63–86; PULSE 67–83; RESP 16–25; TEMP 36.1–36.2; O2SAT 90–95; BMI 27.3
--- NOTE | 2025-02-11 10:44 | ANES.PREANE2 ---
Pre-Anesthetic Assessment Height/Weight: Height 5 ft 7 in Preop Diagnosis: Rotator cuff tear Operation Date: 02/11/25 11:50 Proposed Procedures p LEFT Shoulder Diagnostic and Surgical Arthroscopy w/ Subacromial Decompression(Left) - Apollo Collins DO s LEFT Acromioclavicular Joint Resection(Left) - Apollo Collins DO s POSSIBLE Shoulder Cyst Decompression(Left) - Apollo Collins DO s POSSIBLE LEFT Rotator Cuff Debridement vs. Repair(Left) - Apollo Collins DO s LEFT POSSIBLE Biceps Tenotomy vs. Tenodesis(Left) - Apollo Collins DO Was Beta Raz taken within 24 hours: N/A Was Clonidine taken within 24 hours: N/A Last intake: Intake Last Liquid Date 02/10/25 Last Liquid Time 23:45 Last Solid Date 02/10/25 Last Solid Time 23:45 Social No alcohol and No tobacco Exam alert, oriented x 3, clear to auscultation bilaterally and regular rate & rhythm Airway Submandibular: within normal limits Cervical ROM: within normal limits Mallampati: Class I Comments: Comments: Edentulous Anesthetic Plan ASA status: 3 Anesthesia: General and Regional (specify below) Other: No prior issues with anesthesia NPO since yesterday evening History of hypertension on hydrochlorothiazide and amlodipine Asthma, occasional inhaler use Anemia noted on labs from August, patient had a hip fracture at this time however. Repeat CBC today ordered EKG showing sinus tachycardia with old septal ID Plan for general anesthesia with preop nerve block Medications/Allergies Home Medications ?Medication ?Instructions ?Recorded ?Confirmed ?Last Taken ?Type multivitamin 1 tab PO DAILY 10/17/23 02/11/25 02/10/25 History gabapentin 600 mg tablet 600 mg PO Q6H PRN nerve pain 01/21/24 02/11/25 02/11/25 History loratadine 10 mg tablet (Allergy 10 mg PO DAILY 01/21/24 02/11/25 02/09/25 History Relief (loratadine)) tizanidine 4 mg capsule 4 mg PO Q8H PRN muscle spasms 01/21/24 02/11/25 02/10/25 History calcium 600 mg (as 1 cap PO BID #180 caps 03/19/24 02/11/25 02/10/25 Rx carbonate)-vitamin D3 12.5 mcg (500 unit) capsule (Calcium with Vit D3) mupirocin 2 % topical ointment See Rx Instructions .Route 06/16/24 02/11/25 Unknown Rx .COMPLEX #22 grams montelukast 10 mg tablet 10 mg PO DAILY #90 tabs 07/16/24 02/11/25 02/09/25 Rx (Singulair) benzonatate 100 mg capsule 100 mg PO TID PRN cough #30 caps 08/25/24 02/11/25 02/10/25 Rx naloxone 4 mg/actuation nasal spray See Rx Instructions .Route .COMPLEX 08/30/24 02/11/25 Unknown History morphine 30 mg capsule,extended 30 mg PO DAILY 09/24/24 02/11/25 02/11/25 History release 24 hr multiphase (Avinza) miscellaneous medical supply See Rx Instructions cellaneous 10/12/24 02/02/25 Unknown Rx .COMPLEX #210 ea miscellaneous medical supply See Rx Instructions miscellaneous 12/10/24 02/02/25 Unknown Rx .COMPLEX #1 ea nystatin 100,000 unit/gram topical 1 applic topical DAILY #60 grams 02/02/25 02/11/25 Unknown Rx powder albuterol sulfate 90 mcg/actuation 2 inh inhalation PRN PRN Wheezing 02/10/25 02/11/25 02/10/25 History aerosol inhaler amlodipine 5 mg tablet 10 mg PO DAILY 02/10/25 02/11/25 02/10/25 History bupropion HCl 300 mg 24 hr tablet, 300 mg PO QAM 02/10/25 02/11/25 02/11/25 History extended release (Wellbutrin XL) buspirone 5 mg tablet 5 mg PO TID 02/10/25 02/11/25 02/10/25 History hydrochlorothiazide 12.5 mg tablet 12.5 mg PO PRN PRN swelling 02/10/25 02/11/25 02/10/25 History hydrocodone 10 mg-acetaminophen 1 tab PO PRN PRN Pain 02/10/25 02/11/25 Unknown History 325 mg tablet naproxen 500 mg tablet 500 mg PO BID 02/10/25 02/11/25 02/03/25 History sertraline 50 mg tablet 75 mg PO DAILY 07/30/25 07/31/25 07/30/25 History Allergies Allergy/AdvReac Type Severity Reaction Status Date / Time Latex, Natural Rubber Allergy Intermediate blisters Verified 02/11/25 10:22 Penicillins Allergy Intermediate hives Verified 02/11/25 10:22 Sulfa (Sulfonamide Allergy Intermediate hives Verified 02/11/25 10:22 Antibiotics) [facility] Anesthesia Medical History Myofascial pain syndrome Sacroiliitis Lumbar spinal stenosis Asthma Hyperlipidemia Deep vein thrombosis Osteoarthritis Compression fracture Depression Left leg cellulitis Venous stasis ulcer Acute bronchitis Chronic pain Blind AMD (age-related macular degeneration), wet Surgical History Status post hip surgery Date of procedure: August 30, 2024. Pre-op diagnosis: Right intertrochanteric hip fracture with subtrochanteric extension, prior right total knee arthroplasty with periprosthetic fracture during manipulation requiring ORIF with a lateral supracondylar plate. Procedure done: Open reduction internal fixation right intertrochanteric hip fracture with subtrochanteric extension utilizing the gamma 3 nail. Implants: [employer] gamma nail system with a size 11 mm x 180 mm x 125 degree gamma 3 trochanteric nail with a proximal lag screw size 10.5 mm x 100 mm and distal locking screw size 5 mm x 40 mm. Surgeon: Olga Brambila MD History of cholecystectomy History of bariatric surgery History of tonsillectomy History of knee surgery History of hysterectomy History of tubal ligation Social History Smoking and tobacco/nicotine status: current every day tobacco/nicotine user
[2025-02-11] MEDS: acetaminophen 1,000 MG/100 ML PIGGYBACK 400 MG IV (10:52)
[2025-02-11 10:53] LABS: Hematocrit 34.0 % (36-47); Hemoglobin 11.10 g/dL (11.27-16.99); Mean Corpuscular HGB Conc 32.6 g/dL (30-55); Mean Corpuscular Hemoglobin 28.1 pg (27-33); Mean Corpuscular Volume 86.1 fl (85-98); Nucleated Red Blood Cells % 0 %; Platelet Count 474 10^3/cmm (157-399); Red Blood Count 3.95 10^6/uL (3.85-5.65); White Blood Count 9.31 10^3/uL (3.29-11.43)
--- NOTE | 2025-02-11 11:00 | W.PM.OPSUD ---
Surgery/Procedure H&P Update DATE OF PROCEDURE: February 11, 2025 DATE H&P PERFORMED: 01/12/25 H&P UPDATE INFORMATION: I have reviewed H&P completed within last 30 days, I have examined patient prior to procedure and No changes to prior documentation PREOP DIAGNOSIS: Left shoulder pain, AC joint arthritis, subacromial impingement, bicep tend PRIMARY INDICATION FOR PROCEDURE: Left shoulder pain, AC joint arthritis, subacromial impingement syndrome, biceps tendinitis, partial rotator cuff tear/tendinitis PLANNED PROCEDURE: Operation Date: 02/11/25 11:50 Proposed Procedures p LEFT Shoulder Diagnostic and Surgical Arthroscopy w/ Subacromial Decompression(Left) - DO nuno Mari LEFT Acromioclavicular Joint Resection(Left) - DO nuno Mari POSSIBLE Shoulder Cyst Decompression(Left) - DO nuno Mari POSSIBLE LEFT Rotator Cuff Debridement vs. Repair(Left) - DO nuno Mari LEFT POSSIBLE Biceps Tenotomy vs. Tenodesis(Left) - Apollo Collins DO
--- NOTE | 2025-02-11 11:10 | ANES.PROC ---
Anesthesia Procedures Procedure/Date: 02/11/25 Nerve Block ^: Nerve Block 1: Main Anesthesia: other (100mcg fentanyl and 2mg versed) Time Out Performed: Yes Consent: requested by attending/covering physician and from patient Laterality: Left Nerve block location: interscalene Anesthesia monitors applied: pulse oximetry, EKG, BP cuff and oxygen Nerve block position: supine Anesthetic Used: ropivicaine 0.5% Amount of anesthesia used (mL): 30 Ultrasound used to: recognize landmarks Nerve Stimulator Used?: Yes Interscalene/Femoral BLK: other needle (pjunk 4inch) Injection: neg aspiration of heme Patient Tolerated Procedure: well Complications: none Additional Comments: decadron 4mg added to block
[2025-02-11 11:19] LABS: NT Pro B Type Natriuretic Pept 297 pg/mL (0-125)
--- NOTE | 2025-02-11 13:08 | W.PM.BPON ---
Date of Procedure: 02/11/2025 Surgeon: Apollo Collins DO Environmental Compliance Specialist(s): Stevo Collins PA-C Procedure(s) performed: Left shoulder diagnostic and surgical arthroscopy with biceps tenodesis Left shoulder diagnostic and surgical arthroscopy with glenohumeral joint chondroplasty Left shoulder diagnostic and surgical arthroscopy with labral debridement Left shoulder diagnostic and surgical arthroscopy with subacromial decompression Left shoulder diagnostic and surgical arthroscopy with AC joint resection Left shoulder diagnostic and surgical arthroscopy with rotator cuff debridement Findings of the procedure(s): Procedure went as planned without issues or complications taken recovery in stable condition. Estimated blood loss: 10 mL Specimen(s) removed: None Post-operative diagnosis: Left shoulder superior labral tearing/biceps tendinitis, glenohumeral joint chondromalacia, labral tearing circumferentially, subacromial impingement, AC joint arthritis, partial rotator cuff tear bursal sided less than 15%
--- NOTE | 2025-02-11 13:10 | PM.OP ---
Operative Report Date of procedure: February 11, 2025 Surgeon: Apollo Collins DO Electrical And Instrument Engineer: Stevo Collins PA-C: PA was necessary for assistance in this case with shoulder positioning to execute the procedure, assistance with instrumentation, as well as implant fixation, assist with wound closure and dressing application. Procedure: Preoperative diagnosis: Left shoulder pain, AC joint arthritis, subacromial impingement syndrome, biceps tendinitis, partial rotator cuff tear/tendinitis Post-op diagnosis:? Left shoulder superior labral tearing/biceps tendinitis, glenohumeral joint chondromalacia, labral tearing circumferentially, subacromial impingement, AC joint arthritis, partial rotator cuff tear bursal sided less than 15% Procedure done: Left shoulder diagnostic and surgical arthroscopy with biceps tenodesis Left shoulder diagnostic and surgical arthroscopy with glenohumeral joint chondroplasty Left shoulder diagnostic and surgical arthroscopy with labral debridement Left shoulder diagnostic and surgical arthroscopy with subacromial decompression (acromioplasty/bursectomy) Left shoulder diagnostic and surgical arthroscopy with AC joint resection (distal clavicle excision) Left shoulder diagnostic and surgical arthroscopy with rotator cuff debridement Surgeon: Apollo Collins DO Estimated blood loss: 10mL IV fluids: See anesthesia record Implants: Arthrex 4.75 loop and tack biceps tenodesis kit Complications: None Condition: stable Disposition: same day Brief History: Patient been seen and worked up in the outpatient setting for Left?shoulder?pain.? Pt had an MRI which showed findings below.? Patient's failed conservative treatment and has weakness.? We talked about treatment options far as nonoperative and operative intervention..? We talked about risk benefits complication alternatives surgical nonsurgical treatment options.? Understanding risk of surgery pt agrees to proceed with surgical intervention.? All questions have been answered at this time.? Patient elects proceed with surgery and consent obtained in preop area for left shoulder diagnostic and sugical arthroscopy with subacromial decompression, AC resection, possible rotator cuff debridment vs repair, possible biceps tenotomy vs tenodesis MR/MR shoulder LT wo con* [id number] IMPRESSION: 1. Deformity LEFT humeral head and neck from a prior healed fracture. 2. Moderate AC joint arthritis. 3. Mild subacromial impingement. 4. No rotator cuff tendon tear. 5. Advanced degenerative changes involving the glenoid and humeral head with loss of cartilage. 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 6. Small joint effusion. 7. Multiloculated fluid collection adjacent to the distal subscapularis tendon. Differential includes a small ganglion versus paralabral cyst. Procedure: Patient seen evaluated in the preoperative holding area.? Consent reviewed and signed with patient.? Once again reviewed patient's MRI results as well as? planned surgical intervention.? Correct extremity marked.? Patient seen evaluated by anesthesia department received regional anesthesia.? Once ready for surgery was taken back to the operative suite.? Patient then subsequently underwent anesthesia per the anesthesia department was transported onto the OR table.? Patient was then placed into a lateral decubitus position with a beanbag and was appropriately secured to the bed.? All bony prominences well-padded.? Patient then had the Left upper extremity was then prepped and draped in standard orthopedic fashion.? Patient received appropriate preoperative antibiotics.? Final timeout performed. The Left upper extremity was then held in hanging from traction utilizing sterile technique.? Next started with standard diagnostic and surgical arthroscopy with posterior portal position introduced arthroscope into the glenohumeral joint.? Visualized the glenohumeral joint I then introduced a spinal needle within the rotator cuff interval to confirm appropriate anterior portal placement.? Once this was confirmed I then made my small incision and then introduced my arthroscopic shaver into the glenohumeral joint. After flushing the joint fluid, was clearly evident patient had biceps tendon tearing as well as Superior labral tear. Patient had appreciable unstable biceps anchor most pronounced in the superior labrum. Given there appears to be healthy intra-articular tendon plan was for an intra-articular biceps tenodesis at the superior portion as it enters the intertubercular groove. Thermal wand introduced into the rotator interval. I then release of the rotator interval to have appropriate visualization and the ability to perform biceps tenodesis. At this point I established a purple passport cannula which was introduced. Next I performed an Arthrex loop and tap biceps tenodesis. Passer was then made around the tendon luggage tag stitch around and then thru the tendon, then utilized a thermal wand to release the biceps tendon at the anchor to perform with tenotomy. I then loaded with suture onto an Arthrex 4.75 swivel lock suture anchor. A punch was then placed in appropriate position at the entry point into the intertubercular groove just superior to the subscapularis tendon. Punch was then introduced to the appropriate depth. The suture loaded on the swivel lock was then advanced held under appropriate tension and shoulder lock anchor was then advanced and had excellent fixation. Excess suture was then cut biceps tenodesis was complete. I then utilized a thermal wand to seal the edges of the superior labrum. Next I evaluated the subscapularis tendon which was intact and no evidence of tear. ?Next there was significant labral tearing at biceps anchor and circumferential.? ? I then subsequently utilized a a arthroscopic shaver and thermal wand to perform a labral debridement.? This point time I then visualized the glenohumeral joint.? The glenohumeral joint was found to have grade 3-4? chondromalacia throughout.? At this point in time I then subsequently given the grade 3- 4 chondromalacia with there was some loose unstable articular cartilage pieces I then subsequently performed a standard glenohumeral joint chondroplasty with arthroscopic shaver and thermal wand to stable articular tissue. Axillary pouch was free of loose bodies from viewing the posterior portal.? Next a visualized the rotator cuff superiorly and there was found to be no rotator cuff tear.? Patient had negative escape bubble sign?. ?this completed my work within the glenohumeral joint all fluid was suctioned free of the joint.? ?Next I reintroduced the arthroscope posteriorly.? And went to the subacromial space.? I established my lateral working portal at the site of which my spinal needle was marking of the rotator cuff tear.? Thermal wand was then introduced laterally and then I subsequently performed extensive bursectomy of the subacromial space.? Patient had a large anterior bone spur.? At this point time I proceeded with my AC joint resection thermal wand was used and track to the anterior edge of the acromion and then tracked all the way to the AC joint.? Once identified the AC joint this was severe arthritic in nature.? Thermal wand was placed anteriorly to establish appropriate plane for AC joint resection.? Once appropriate margins and anterior inferior and anterior capsule was released, with care to leave the superior and posterior capsule intact, I then introduced arthroscopic shaver and a bur and performed AC joint resection of both the acromion to co-plane at the AC joint and a distal clavicle resection was then performed totaling 1 cm in size and was confirmed.? This completed my AC joint resection and I then introduced the arthroscopic shaver laterally while continuing to view posteriorly.? I then performed an acromioplasty to complete my subacromial decompression. Rotator cuff was then assessed and found to have no evidence of full-thickness tear the patient had roughly 15% bursal sided rotator cuff fraying which was then just gently debrided with arthroscopic shaver to perform a rotator cuff debridement. Of note while performing the subacromial decompression/bursectomy intra-articularly there was no sign of subscapularis tendon tear and no appreciable sign of any cyst this did appear on my review of the MRI to be more in the subacromial space superior and anterior to the subscapularis tendon in the subacromial space I did perform an extensive synovectomy which would have debrided the cyst in this area but while performing this there was no specific well-defined cyst. But based off of the MRI i i believe this would have been excised given the bursectomy that was performed. ?Next I then introduced the arthroscopic shaver posteriorly to complete my subacromial decompression appropriate co-planing all the way up to the lateral edge of the acromion.? This completed the surgery.? All fluid was suctioned from the?shoulder.? All instruments were removed.? The lateral incision was then closed with nylon stitches.? As well as the portal sites closed with portal nylon stitches.? Xeroform 4 x 4's ABD and tape was then applied to the Left?shoulder?and was placed into a?shoulder?abduction pillow sling for bicep tenodesis.? Patient was then awakened from anesthesia and then taken back to PACU in stable condition.? Patient tolerated procedure without any issues. Disposition: Patient taken back in stable condition recovering well.? Dressings on in place clean dry and intact.? Will be nonweightbearing to the Left upper extremity.? Follow bicep tenodesis protocol.? Patient to follow-up with Ortho in the office in 2 weeks.? Patient will receive appropriate discharge instruction as well as pain medication postoperatively.? All questions answered.? We will contact the office for any questions or concerns.
--- NOTE | 2025-02-11 13:34 | PM.PACU ---
PACU note Narrative: Patient is a 54-year-old female just underwent a left shoulder diagnostic and surgical arthroscopy. Patient transferred to PACU in stable condition. Pain is well controlled. shoulder Dressing on , dry and in place. Patient's operative arm is in a shoulder immobilizer. Patient's fingers are warm with good perfusion. Normal cap refill under 2 seconds. Unable to assess further range of motion in arm due to sling. Unable to perform any further motor sensation assessment due to residual block and patient still under anesthesia. Exam: unarousable Disposition: discharged
[2025-02-11] MEDS: fentaNYL 50 mcg/mL INJ 2mL IVP (13:50)
[2025-02-11] MEDS: HYDROcodone-acetaminophen 5-325 mg Tablet 1 TAB PO (14:56)
--- NOTE | 2025-02-11 16:30 | ANE.PACU2 ---
Inpatient post-anesthesia follow up: Airway intact: Yes Vital signs: Temperature 97 F Pulse Rate 82 Respiratory Rate 16 Blood Pressure 138/73 Pulse Oximetry 92 Oxygen Delivery Me thod Room Air Oxygen Flow Rate 2 Fraction of Inspir ed Oxygen Hydration adequate: Yes Nausea and vomiting: No Pain level: 1 Mental status: Baseline
--- NOTE | 2025-02-11 16:41 | PC.NURSE ---
Patient had fluctuations in her O2 saturations between 88-94 on room air. For the last 45 minutes of her stay O2 was steady between 91-94 with the occasional drop to 88 when eating or coughing. Dr[address] Cronin was contacted and authorized her discharge.
== END 2025-02-11 16:30 | disposition home or self-care (01) ==
PROVIDERS: Student in an Organized Health Care Education/Training Program; PCP Nurse Practitioner; Visit Provider Student in an Organized Health Care Education/Training Program
PROC: (CPT 29826; principal; 2025-02-11 11:50)
PROC: 0RSH0ZZ Reposition Left Acromioclavicular Joint, Open Approach (ICD-10-PCS; CPT 29828; 2025-02-11 11:50)
PROC: (CPT 29999; 2025-02-11 11:50)
PROC: 0LQ24ZZ Repair Left Shoulder Tendon, Percutaneous Endoscopic Approach (ICD-10-PCS; CPT 29827; 2025-02-11 11:50)
PROC: (CPT 23405; 2025-02-11 11:50)
PROC: (CPT 29828; 2025-02-11 11:50)
DX: M75.42 Impingement syndrome of left shoulder (principal); S43.432A Superior glenoid labrum lesion of left shoulder, initial encounter; M94.212 Chondromalacia, left shoulder; M19.012 Primary osteoarthritis, left shoulder; M75.112 Incomplete rotator cuff tear or rupture of left shoulder, not specified as traumatic; I10 Essential (primary) hypertension; J45.909 Unspecified asthma, uncomplicated; D64.9 Anemia, unspecified; R00.0 Tachycardia, unspecified; E78.5 Hyperlipidemia, unspecified; F32.A Depression, unspecified; H35.3290 Exudative age-related macular degeneration, unspecified eye, stage unspecified; F17.200 Nicotine dependence, unspecified, uncomplicated
CPT/HCPCS: 29828; 29824; 29823; 36415; 83880; 85025; C1713; J0131; J0169; J1100; J1885; J2405; J3010; J7030; J7613; J7644; J9999

== ENCOUNTER → 2025-02-23 11:46 | Outpatient (BNVA) | payer MEDICARE, MEDICAID, SELFPAY | PROVIDERS: PCP Nurse Practitioner; Visit Provider Nurse Practitioner | DX: R30.0 Dysuria (principal) | CPT/HCPCS: 81000; 87086 ==

== ENCOUNTER → 2025-02-26 10:22 | Outpatient (BNVA) | payer MEDICARE, MEDICAID, SELFPAY | PROVIDERS: PCP Nurse Practitioner; Referring Provider Family Medicine; Visit Provider Physician Assistant | DX: Z98.890 Other specified postprocedural states (principal) | CPT/HCPCS: 99024 ==

== ENCOUNTER → 2025-04-23 10:22 | Outpatient (BNVA) | payer MEDICARE, MEDICAID, SELFPAY | PROVIDERS: PCP Nurse Practitioner; Visit Provider Physician Assistant | DX: Z98.890 Other specified postprocedural states (principal); M75.41 Impingement syndrome of right shoulder | CPT/HCPCS: 99024; 99213 ==

== ENCOUNTER → 2025-04-27 11:17 | Outpatient (BNVA) | payer MEDICARE, MEDICAID, SELFPAY | PROVIDERS: PCP Nurse Practitioner; Visit Provider Nurse Practitioner Family | DX: D48.5 Neoplasm of uncertain behavior of skin (principal); L30.8 Other specified dermatitis; I87.2 Venous insufficiency (chronic) (peripheral); L57.8 Other skin changes due to chronic exposure to nonionizing radiation; L81.4 Other melanin hyperpigmentation; L82.1 Other seborrheic keratosis | CPT/HCPCS: 99214 ==